=== PATIENT | female | born 1930 | race Caucasian/White ===

== ENCOUNTER → 2016-08-20 | Outpatient (CLI) | payer OTHER, MEDICARE ==
[2016-08-20 09:50] LABS: BLOOD UREA NITROGEN 11 mg/dl (7-18); BUN/CREATININE RATIO 11.5 (10-20); CALCIUM 8.7 mg/dl (8.5-10.1); CARBON DIOXIDE 29 mmol/L (21-32); CHLORIDE 102 mmol/L (98-107); CREATININE 0.93 mg/dl (0.60-1.20); GLUCOSE 94 mg/dl (70-99); POTASSIUM 4.2 mmol/L (3.5-5.1); SODIUM 138 mmol/L (136-145)
[2016-08-20 09:53] LABS: CHOLESTEROL 250 mg/dl (0-200); CHOLESTEROL/HDL RATIO 4.4; HDL CHOLESTEROL 57 mg/dl; LDL CHOLESTEROL CALCULATED 162 mg/dl; TRIGLYCERIDES 153 mg/dl (0-150); VERY LOW DENSITY LIPOPROT CALC 31 mg/dl
== END | disposition home or self-care (01) ==
LOC: C.LABFOXMH 09:06
PROVIDERS: ATTEND Internal Medicine
DX: I10 Essential (primary) hypertension (principal)

== ENCOUNTER → 2017-02-24 | Outpatient (CLI) | payer OTHER, MEDICARE ==
[2017-02-24 09:07] LABS: ALT/SGPT 20 U/L (12-78); AST/SGOT 17 U/L (15-37); BLOOD UREA NITROGEN 14 mg/dl (7-18); BUN/CREATININE RATIO 12.9 (10-20); CALCIUM 9.4 mg/dl (8.5-10.1); CARBON DIOXIDE 30 mmol/L (21-32); CHLORIDE 103 mmol/L (98-107); CHOLESTEROL 263 mg/dl (0-200); CHOLESTEROL/HDL RATIO 4.2; GLUCOSE 91 mg/dl (70-99); HDL CHOLESTEROL 62 mg/dl; LDL CHOLESTEROL CALCULATED 176 mg/dl; POTASSIUM 4.3 mmol/L (3.5-5.1); SODIUM 137 mmol/L (136-145); TRIGLYCERIDES 125 mg/dl (0-150); VERY LOW DENSITY LIPOPROT CALC 25 mg/dl
[2017-02-24 09:09] LABS: ALKALINE PHOSPHATASE 57 U/L (45-117)
[2017-02-25 11:18] LABS: C-REACTIVE PROT HIGHSEN 4.4 MG/L
== END | disposition home or self-care (01) ==
LOC: C.LABFOXMH 08:44
PROVIDERS: ATTEND Internal Medicine
DX: I10 Essential (primary) hypertension (principal); E78.00 Pure hypercholesterolemia, unspecified

== ENCOUNTER → 2017-08-18 | Outpatient (CLI) | payer OTHER, MEDICARE ==
--- NOTE | 2017-08-18 10:16 | DIAGNOSTIC IMAGING REPORT ---
CT HEAD WITHOUT CONTRAST (CT) CLINICAL HISTORY: LOSS OF TASTE AND SMELL COMPARISON STUDY: No previous studies for comparison. TECHNIQUE: Axial CT of the brain is performed from the vertex to the skull base. IV contrast was not administered for this examination. A dose lowering technique was utilized adhering to the principles of ALARA. CT DOSE: 690.05 mGycm FINDINGS: No intra or extra-axial mass lesions are visualized. There is no CT evidence of acute cortical infarction. There is no evidence of midline shift. There is no acute hemorrhage. No calvarial fractures are visualized. There are patchy white matter hypodensities, most pronounced in the frontal regions. While nonspecific this is likely on a small vessel basis. There is no evidence of pathologic ventricular dilatation. There is no evidence of acute sinusitis IMPRESSION: 1. Nonspecific white matter hypodensities, likely on a small vessel ischemic basis 2. No evidence of sinusitis. 3. No evidence of acute hemorrhage. No evidence of mass effect. Electronically signed by: Bassam Holloway M.D. 08/18/2017 10:15 AM Dictated Date/Time: 08/18/2017 10:14 AM
--- NOTE | 2017-08-18 10:36 | DIAGNOSTIC IMAGING REPORT ---
CHEST 2 VIEWS ROUTINE CLINICAL HISTORY: COUGH dyspnea COMPARISON STUDY: 03/04/2015 FINDINGS: Calcified subcarinal mass is again noted. There is been previously described as a calcified bronchogenic cyst. Diaphragms are smooth. Lungs appear clear. IMPRESSION: Chronic change. No acute process. The above report was generated using voice recognition software. It may contain grammatical, syntax or spelling errors. Electronically signed by: Scott Scanlon M.D. 08/18/2017 10:35 AM Dictated Date/Time: 08/18/2017 10:34 AM
== END | disposition home or self-care (01) ==
LOC: C.CTS 09:32
PROVIDERS: ATTEND Internal Medicine Hospice and Palliative Medicine
DX: R05 Cough (principal); R43.8 Other disturbances of smell and taste

== ENCOUNTER → 2017-08-25 | Outpatient (CLI) | payer OTHER, MEDICARE ==
--- NOTE | 2017-08-25 14:41 | MAMMOGRAPHY REPORT ---
BILATERAL DIGITAL SCREENING MAMMOGRAM TOMOSYNTHESIS WITH CAD: 08/25/2017 CLINICAL HISTORY: Routine screening. Patient has no complaints. TECHNIQUE: Breast tomosynthesis in addition to standard 2D mammography was performed. Current study was also evaluated with a Computer Aided Detection (CAD) system. COMPARISON: Comparison is made to exam dated: 07/14/2012 mammogram - [facility]. BREAST COMPOSITION: There are scattered areas of fibroglandular density in both breasts. FINDINGS: No suspicious masses, calcifications, or areas of architectural distortion are noted in ei ther breast. There has been no significant interval change compared to prior exams. Scattered bilater al benign-appearing calcifications are not significantly changed. Nodular asymmetry in the left joe st at approximately 3:00 is stable compared to the 2013 exam and considered benign given long-term st ability. IMPRESSION: ACR BI-RADS CATEGORY 2: BENIGN There is no mammographic evidence of malignancy. A 1 year screening mammogram is recommended. The pa tient will receive written notification of the results. Approximately 10% of breast cancers are not detected with mammography. A negative mammographic report should not delay biopsy if a clinically suggestive mass is present. Natasha López M.D. /:08/25/2017 13:27:21 Admission Nurse: Adela Shahid, [facility] letter sent: Normal 1/2 BI-RADS Code: ACR BI-RADS Category 2: Benign
== END | disposition home or self-care (01) ==
LOC: C.MAMM 12:59
PROVIDERS: ATTEND Internal Medicine
DX: Z12.31 Encounter for screening mammogram for malignant neoplasm of breast (principal)

== ENCOUNTER → 2017-09-26 | Outpatient (CLI) | payer OTHER, MEDICARE ==
--- NOTE | 2017-09-26 11:50 | DIAGNOSTIC IMAGING REPORT ---
CHEST 2 VIEWS ROUTINE CLINICAL HISTORY: 87 years-old Female presenting with COUGH, R53.83. TECHNIQUE: PA and lateral views of the chest were obtained. COMPARISON: 08/18/2017. FINDINGS: Cardiomediastinal silhouette normal. 6.1 cm peripherally calcified subcarinal mass consistent with known bronchogenic cyst unchanged. Lungs and pleural spaces clear. Osseous structures normal. Upper abdomen normal. IMPRESSION: 1. No acute cardiopulmonary disease. 2. 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 Electronically signed by: Brien Collazo M.D. 09/26/2017 11:49 AM Dictated Date/Time: 09/26/2017 11:47 AM
[2017-09-26 12:11] LABS: HEMATOCRIT 42.4 % (37-47); HEMOGLOBIN 14.7 g/dL (12.0-16.0); MEAN CORPUSCULAR HEMOGLOBIN 31.2 pg (25-34); MEAN CORPUSCULAR HGB CONC 34.7 g/dl (32-36); MEAN PLATELET VOLUME 9.7 fL (7.4-10.4); PLATELET COUNT 237 K/uL (130-400); RED CELL DISTRIBUTION WIDTH CV 15.1 % (11.5-14.5); RED CELL DISTRIBUTION WIDTH SD 50.1 fL (36.4-46.3)
[2017-09-26 12:48] LABS: ALBUMIN 3.5 gm/dl (3.4-5.0); ALT/SGPT 24 U/L (12-78); AST/SGOT 15 U/L (15-37); BLOOD UREA NITROGEN 17 mg/dl (7-18); CALCIUM 8.7 mg/dl (8.5-10.1); CARBON DIOXIDE 24 mmol/L (21-32); CREATININE 1.02 mg/dl (0.60-1.20); GLUCOSE 100 mg/dl (70-99); POTASSIUM 4.1 mmol/L (3.5-5.1); SODIUM 135 mmol/L (136-145)
[2017-09-26 13:05] LABS: ALKALINE PHOSPHATASE 66 U/L (45-117); TOTAL PROTEIN 7.5 gm/dl (6.4-8.2)
== END | disposition home or self-care (01) ==
LOC: C.RAD 10:44
PROVIDERS: ATTEND Internal Medicine
DX: R05 Cough (principal); J98.4 Other disorders of lung; R53.83 Other fatigue

== ENCOUNTER 2018-12-22 05:52 | Inpatient (IN) ==
[2018-12-22] MEDS ORDERED: ASPIRIN CHEW 324 MG PO STA (06:13)
[2018-12-22 06:25] LABS: Basophils # (auto) 0.04 K/uL (0-0.2); Basophils % (auto) 0.4 %; Eosinophils # (auto) 0.12 K/uL (0-0.5); Eosinophils % (auto) 1.2 %; Hematocrit (blood only) 42.7 % (37-47); Hemoglobin 14.5 g/dL (12.0-16.0); Immature Granulocytes # (auto) 0.02 K/uL (0.00-0.02); Immature Granulocytes % (auto) 0.2 %; Lymphocytes # (auto) 2.41 K/uL (1.2-3.4); Lymphocytes % (auto) 25.1 %; Mean Corpuscular Volume 89.1 fL (80-100); Mean Platelet Volume 9.8 fL (7.4-10.4); Monocytes # (auto) 0.91 K/uL (0.11-0.59); Monocytes % (auto) 9.5 %; Neutrophils # (auto) 6.12 K/uL (1.4-6.5); Neutrophils % (auto) 63.6 %; Platelet Count 249 K/uL (130-400); RDW Coefficient of Variation 14.6 % (11.5-14.5); RDW Standard Deviation 47.6 fL (36.4-46.3); Red Blood Count 4.79 M/uL (4.2-5.4); White Blood Count 9.62 K/uL (4.8-10.8)
[2018-12-22] MEDS ORDERED: ASPIRIN 81 MG CHEW PO STA (06:28)
[2018-12-22 06:39] LABS: Albumin Level 3.7 gm/dl (3.4-5.0); BUN Creatinine Ratio 15.5 (10-20); Calcium 9.5 mg/dl (8.5-10.1); Creatinine Clr Calc Pharmacy 35.2 ml/min; Est GFR (African American) 51.5; Est GFR (Non-African American) 44.4
[2018-12-22 06:44] LABS: Albumin Globulin Ratio 0.9 (0.9-2); Bilirubin,Total 0.4 mg/dl (0.2-1); Total Protein 7.7 gm/dl (6.4-8.2); Troponin I 0.034 ng/ml (0-0.045)
--- NOTE | 2018-12-22 06:47 | XRay Report ---
XR chest 1V portable CLINICAL HISTORY: Atypical chest pain COMPARISON STUDY: 09/26/2017 FINDINGS: The heart is normal in size. There is no failure. There is no focal pulmonary consolidation . There are no pleural effusions. There is a stable eggshell calcified subcarinal mass measuring 6.4 cm IMPRESSION: Stable calcified 6.4 cm subcarinal mass, possibly representing a rim calcified bronchogen ic cyst Electronically signed by: Bassam Holloway M.D. 12/22/2018 6:46 AM
--- NOTE | 2018-12-22 06:53 | Emergency Department Note ---
Entered by Jane Larry acting as a scribe for Kuldip Santa MD History of Present Illness General Chief complaint: Chest Pain Stated complaint: SHOULDER/CHEST PAIN Time Seen by Provider: 12/22/18 06:28 Source: patient History of Present Illness Onset (ago): hour(s) (6.5) Location: chest (left-sided) Radiation: extremity (left upper; and left shoulder) Pain Consistency: + other (episode) Maximum Pain Intensity: 4 Associated symptoms: + nausea/vomiting and + other (negative numbness; negative pain or swelling in legs); no cough, no fever/chills, no headaches, no shortness of breath and no weakness Treatments prior to arrival: other (baby aspirin) The patient is a 88 year old female who presents to the Emergency Room with complaints of an episode of left-sided chest pain that began at midnight, about 6.5 hours prior to arrival. She states that her pain radiates into her left arm and left shoulder. The patient states that this pain woke her up from sleep, and states that she took several baby aspirin at this time. She states that after taking this baby aspirin she became nauseous and vomited. The patient denies headache, shortness of breath, fevers, cough, numbness, weakness, and pain or swelling in her legs. She states that she was able to take more baby aspirin at 0400 and did not vomit afterwards. The patient denies any trauma to her left arm. The patient denies a personal or family history of heart problems, but states that she has a history of hypertension. She states that she heard some stressful news yesterday about her sons. Home Medications Home Medications Medication Instructions Recorded Confirmed Type aspirin 81 mg PO UD PRN 12/22/18 12/22/18 History irbesartan 150 mg PO DAILY 12/22/18 12/22/18 History pantoprazole 40 mg PO DAILY 12/22/18 12/22/18 History Allergies Allergy/AdvReac Type Severity Reaction Status Date / Time amoxicillin Allergy Intermediate Hives Verified 12/22/18 12:13 Iodinated Contrast- Oral and Allergy Swelling Verified 12/22/18 06:19 IV Dye of Lip/Tongue/Throat strawberry Allergy Hives Verified 12/22/18 06:19 tomato Allergy Hives Verified 12/22/18 06:19 Past Med/Surg History Surgical History S/P tonsillectomy and adenoidectomy Family History Other No pertinent family history in first degree relatives Social History Preferred Language: Estonian Communication Ability: Effective Academic Support Director Required: No Beliefs That Will Affect Care: None Current Living Situation: Boarding Home Other Information That Helps Us Care for You: No Feels Safe at Home: Yes Safety Concerns: Feels Safe At This Time Smoking Status: Never smoker Do You Dip or Chew Tobacco: No ; Hx Alcohol Use: No Hx Substance Use: No Review of Systems See HPI for pertinent positives & negatives. and A total of 10 systems reviewed and were otherwise negative Physical Exam Vital Signs Vital Signs - 24 hr 12/22/18 06:08 12/22/18 06:23 12/22/18 06:56 Temperature 36.6 C Temperature Source Oral Sepsis Recent Fever Within 48 Hours No Sepsis Action Taken by Nursing No Action Required Pulse Rate 74 Pulse Rate [Apical] 69 Pulse Rhythm [Apical] Regular Respiratory Rate 18 18 Respiratory Effort / Characteristics Non-Labored Spontaneous Respiratory Depth Normal Normal Blood Pressure 187/91 H Blood Pressure [Left Arm] 182/100 H Blood Pressure Mean 123 Blood Pressure Mean [Left Arm] 127 Pulse Oximetry 98 97 98 Oxygen Delivery Method Room Air Room Air Room Air 12/22/18 08:47 Temperature Temperature Source Sepsis Recent Fever Within 48 Hours Sepsis Action Taken by Nursing Pulse Rate Pulse Rate [Apical] 71 Pulse Rhythm [Apical] Respiratory Rate 18 Respiratory Effort / Characteristics Respiratory Depth Blood Pressure Blood Pressure [Left Arm] 153/85 H Blood Pressure Mean Blood Pressure Mean [Left Arm] 107 Pulse Oximetry 95 Oxygen Delivery Method Room Air General: Non-ill appearing older female in no acute distress. HEENT: Normal cephalic atraumatic. Pupils are equal round and reactive to light. Extraocular movements are intact. Oropharynx is pink with moist mucous membranes. No swelling of the mouth lips or tongue. Neck: Supple with a midline trachea. No meningeal signs or stiffness, no JVD or bruits. No Stridor. Chest: Clear to auscultation bilaterally. No wheezes or rhonchi. No increased work of breathing. Heart: regular rate and rhythm. Abdomen: Soft nontender, nondistended without rebound guarding or rigidity. Extremities: Left upper extremity with normal pulses, motor, and sensation. No cyanosis clubbing or edema. No calf tenderness or asymmetry. Spine/Back. Non tender to palpation. No CVA tenderness Skin: Good turgor without rashes. Neurologic exam: Cranial nerves two through 12 are intact. Motor and sensation are intact and symmetrical throughout. Course 0629: Past medical records reviewed. The patient was evaluated in room A11B. A complete history and physical exam was performed. 0657: Upon reevaluation, the patient is feeling better. She states that she has some mild left arm pain but states that this is improving. The patient denies chest pain currently. 0735: [facility] for further evaluation. Consultations Consultation #1: [facility] for further evaluation. Time: 07:35 Administered Medications Heparin Sodium (Porcine) (Heparin Sodium (Porcine)) 5,000 units SQ Q12 DAVID Stop: 01/21/19 09:55 Last Admin: 12/22/18 12:04 Dose: Not Given Documented by: [id number] Metoprolol Tartrate (Lopressor) 12.5 mg PO BID DAVID Stop: 01/21/19 10:44 Last Admin: 12/22/18 12:03 Dose: 12.5 mg Documented by: [id number] Pantoprazole Sodium (Protonix) 40 mg PO DAILY DAVID Stop: 01/21/19 10:14 Last Admin: 12/22/18 12:03 Dose: 40 mg Documented by: [id number] Discontinued Medications Aspirin (Aspirin) 324 mg PO NOW STA Stop: 12/22/18 06:14 Last Admin: 12/22/18 06:50 Dose: Not Given Documented by: [id number] Aspirin (Aspirin Chew) 162 mg PO NOW STA Stop: 12/22/18 06:29 Last Admin: 12/22/18 06:49 Dose: 162 mg Documented by: [id number] Sodium Chloride (Nss 1000ml) 1,000 mls @ 75 mls/hr IV .[id number] DAVID Stop: 01/21/19 09:55 Last Admin: 12/22/18 10:59 Dose: 75 mls/hr Documented by: [id number] Medical Decision Making Differential Diagnosis Differential diagnoses include acute coronary syndrome, arrhythmia, musculoskeletal, DVT, arterial insufficiency, anxiety, and others were considered. Medical Records Attestation: I reviewed the patient's medical records. Home Medications Current Medication List: was personally reviewed by me Laboratory Data Attestation: I reviewed the patient's lab results. Result diagrams: 12/22/18 06:03 12/22/18 06:03 Lab Results 12/22/18 12/22/18 12/22/18 Range/Units 06:03 06:03 06:03 WBC 9.62 (4.8-10.8) K/uL RBC 4.79 (4.2-5.4) M/uL Hgb 14.5 (12.0-16.0) g/dL Hct 42.7 (37-47) % MCV 89.1 (80-100) fL MCH 30.3 (25-34) pg MCHC 34.0 (32-36) g/dL RDW Std Deviation 47.6 H (36.4-46.3) fL RDW Coeff of Miriam 14.6 H (11.5-14.5) % Plt Count 249 (130-400) K/uL MPV 9.8 (7.4-10.4) fL Immature Gran % (Auto) 0.2 % Neut % (Auto) 63.6 % Lymph % (Auto) 25.1 % [place] % (Auto) 9.5 % Eos % (Auto) 1.2 % Baso % (Auto) 0.4 % Immature Gran # (Auto) 0.02 (0.00-0.02) K/uL Neut # (Auto) 6.12 (1.4-6.5) K/uL Lymph # (Auto) 2.41 (1.2-3.4) K/uL [place] # (Auto) 0.91 H (0.11-0.59) K/uL Eos # (Auto) 0.12 (0-0.5) K/uL Baso # (Auto) 0.04 (0-0.2) K/uL PT 9.8 (9.0-12.0) Seconds INR 1.0 (0.9-1.1) APTT 24.0 (21.0-31.0) Seconds PTT Ratio 0.9 Sodium 133 L (136-145) mmol/L Potassium 4.0 (3.5-5.1) mmol/L Chloride 100 (98-107) mmol/L Carbon Dioxide 25 (21-32) mmol/L Anion Gap 8.0 (3-11) BUN 17 (7-18) mg/dl Creatinine 1.12 (0.6-1.2) mg/dl Est Cr Clr Drug Dosing 35.2 ml/min Est GFR ( Amer) 51.5 Est GFR (Non-Af Amer) 44.4 BUN/Creatinine Ratio 15.5 (10-20) Glucose 125 H (70-99) mg/dl Calcium 9.5 (8.5-10.1) mg/dl Total Bilirubin 0.4 (0.2-1) mg/dl AST 16 (15-37) U/L ALT 23 (12-78) U/L Alkaline Phosphatase 78 (45-117) U/L Troponin I 0.034 (0-0.045) ng/ml Total Protein 7.7 (6.4-8.2) gm/dl Albumin 3.7 (3.4-5.0) gm/dl Globulin 4.0 (2.5-4.0) gm/dl Albumin/Globulin Ratio 0.9 (0.9-2) Lipase 217 (73-393) U/L Imaging Data Radiologist's Impression: Radiology results as stated below per my review and the radiologist's interpretation: XR chest 1V portable CLINICAL HISTORY: Atypical chest pain COMPARISON STUDY: 09/26/2017 FINDINGS: The heart is normal in size. There is no failure. There is no focal pulmonary consolidation. There are no pleural effusions. There is a stable eggshell calcified subcarinal mass measuring 6.4 cm IMPRESSION: Stable calcified 6.4 cm subcarinal mass, possibly representing a rim calcified bronchogenic cyst Electronically signed by: Bassam Holloway M.D. 12/22/2018 6:46 AM ECG Data Attestation: I personally reviewed and interpreted this ECG as follows: Indication: chest pain Rate (beats per minute): 73 Rhythm: normal sinus Findings: no acute ischemic change and no ectopy Comparison ECG Date: no prior available Additional Comments: Repeat ECG showed a normal sinus rhythm with a rate of 70. No acute ischemic changes or ectopy. No change from the initial ECG. Blood Pressure Blood Pressure Findings: Elevated blood pressure Blood Pressure Disposition: further management by hospitalist ADRY Vazquez This patient comes in as described above. She was placed in room A10. She is here for treatment evaluation of episode of left arm and chest pain which started around midnight. She is feeling significant better. she has no chest pain with residual minimal arm pain. She did take aspirin prior to arrival last evening and was given additional aspirin here. she does have a history of hypertension and hypercholesteremia. IV access was established EKG was obtained which does not show acute ischemic changes or ectopy. Chest x-ray shows a stable subcarinal mass but no CHF pneumonia or pneumothorax. She has no significant electrolyte or metabolic abnormalities. She appears to be doing well at this point. I am however concerned about her history. She does have a heart score of 5. I do think that she would benefit from admission/observation for further treatment and evaluation of her chest pain. I have consulted the [facility] physician for this. Impression & Plan Left-sided chest pain, Unstable angina, Left arm pain, Hypertension Discharge Plan Visit Data *Final* Discharge Date/Time: 12/22/18 09:29 Chief Complaint: Chest Pain Stated Complaint: SHOULDER/CHEST PAIN Other Complaint: Shoulder Pain ED Provider: Kuldip Santa Discharge Problem: Left-sided chest pain, Unstable angina, Left arm pain, Hypertension Patient Disposition: Admitted As Inpatient Discharge Instructions Interventions: ED Discharge Assessment Last Done: 12/22/18 09:29 The scribe's documentation has been prepared under my direction and personally reviewed by me in its entirety. I confirm that the note above accurately reflects all work, treatment, procedures, and medical decision making performed by me.
[2018-12-22] MEDS ORDERED: SODIUM CHLORIDE 0.9% 1000ML 1,000 ML IV SCH (09:56)
[2018-12-22] MEDS ORDERED: MoRPHine SULFATE 2 MG/ML CARP IV PRN (09:56)
[2018-12-22] MEDS ORDERED: HydrALAZINE HCL 20 MG/ML VIAL IV PRN (09:56)
[2018-12-22] MEDS ORDERED: HEPARIN SOD 5,000 UNIT/0.5 ML VIAL SQ SCH (09:56)
[2018-12-22] MEDS ORDERED: LORazepam 0.5 MG TAB PO PRN (09:56)
[2018-12-22] MEDS ORDERED: MAGNESIUM HYDROXIDE SUSP 30 ML UDC PO PRN (09:56)
[2018-12-22] MEDS ORDERED: ALUMINUM/MAGNESIUM SUSP 30 ML UDC PO PRN (09:56)
[2018-12-22] MEDS ORDERED: ACETAMINOPHEN 325 MG TAB PO PRN (09:56)
[2018-12-22] MEDS ORDERED: NITROGLYCERIN SL 0.4 MG/TAB TAB SL PRN (09:56)
[2018-12-22] MEDS ORDERED: ONDANSETRON INJ 2 MG/ML 2 ML VIAL IV PRN (09:56)
[2018-12-22 10:29] LABS: Partial Thromboplastin Ratio 0.9; Prothrombin Time 9.8 Seconds (9.0-12.0)
[2018-12-22] MEDS ORDERED: METOPROLOL TARTRATE 25 MG TAB PO SCH (10:45)
[2018-12-22 11:39] LABS: Troponin I 0.413 ng/ml (0-0.045)
[2018-12-22] MEDS: PANTOprazole 40 MG TAB PO SCH (12:03)
--- NOTE | 2018-12-22 13:08 | CT Scan Report ---
CT SCAN OF THE CHEST WITHOUT IV CONTRAST CLINICAL HISTORY: Calcified subcarinal lesion. COMPARISON STUDY: Chest CT dated 03/06/2015. Chest x-ray dated 12/22/2018. TECHNIQUE: CT scan of the thorax was performed from the thoracic inlet to the upper abdomen. Images are reviewed in the axial, sagittal, and coronal planes. IV contrast was not administered for this ex amination. A dose lowering technique was utilized adhering to the principles of ALARA. CT DOSE: 265.20 mGy.cm FINDINGS: Thyroid: Imaged portions of the thyroid gland are normal in size and attenuation. Thoracic aorta: There is atherosclerotic calcification of the thoracic aorta, which is normal in kaity declan and demonstrates bovine variant arch anatomy. Heart: The heart is normal in size and there is a small pericardial effusion. The coronary arteries a nd mitral annulus are densely calcified. The pulmonary trunk is normal in caliber. Lungs and pleural spaces: There is no airspace consolidation or pleural effusion. Scattered calcified granulomas are observed. Scarring/atelectasis is seen at the lung bases. The trachea and central air ways are clear. Mediastinum: There is a 6.1 x 6.5 x 5.8 cm peripherally calcified cystic lesion present in the subcar inal space, best seen on image #140. This contains internal calcific debris. Suzi: Not well assessed without IV contrast. Axillae: There is no axillary lymphadenopathy. Upper abdomen: There is a small hiatal hernia. Diverticulosis is noted in the partially imaged left c olon. Skeletal structures: The skeletal structures are osteopenic. Degenerative change is noted throughout the thoracic spine. No lytic or blastic bony lesions are seen. IMPRESSION: 1. There is unchanged appearance of a 6.5 cm peripherally calcified cystic subcarinal lesion when com pared to the 03/06/2015 examination. 2. This is pathologically indeterminant, and likely represents a calcified bronchogenic or duplicatio n cyst. Aneurysm is considered much less likely. 3. The lungs are clear. 4. Additional findings as above. Electronically signed by: Teddy Terry M.D. 12/22/2018 1:07 PM
--- NOTE | 2018-12-22 13:37 | Cardiology Consultation ---
Date of Consultation December 22, 2018 Assessment & Plan (1) Left-sided chest pain: She describes left chest, shoulder and left arm discomfort which lasted for a number of hours and occurred at rest. Although her electrocardiogram is unchanged and her echocardiogram does not show abnormalities the symptoms are suspicious for coronary artery disease in view of an abnormal troponin. Since the symptoms occurred at rest and she has not had exercise-induced symptoms if this is a symptom of ischemia it is consistent with unstable angina. I am reluctant to perform stress testing and have recommended a cardiac catheterization. She is agreeable and we will arrange that today. Although her chart lists an allergy to iodinated contrast she has never received IV dye and has not reacted to it. She does have an allergic reaction to iodine- containing foods in the distant past which may not cross-react. (2) Hypertension: She has a history of hypertension and presents with an elevated blood pressure. Some of that may be anxiety related, or missing her morning medications. Over the long run we should treat her hypertension, initially by placing her back on her medications. History of Present Illness Reason for Consultation: Left arm and chest discomfort, elevated troponin Attending Physician: Bessy Garsia MD History of Present Illness This is a very pleasant 88-year-old woman who has been in quite good health with the exception of hypertension. She has never had any heart disease identified, additionally she has not had symptoms that sound anginal up until midnight the night before admission. She is quite active, she does exercises regularly and is never had difficulty with chest discomfort, shortness of breath or left arm discomfort. She awoke at midnight with left arm discomfort, she also had pain in her left chest and left shoulder and she had never had feeling like this before. Initially she thought it was from the position she was in, however when it continued she took 2 baby aspirin and did have diaphoresis and nausea with it. She came into the emergency room where her electrocardiogram was noted to be normal, her arm discomfort resolved shortly after arrival and her initial troponin was not significantly elevated. She was therefore admitted. Her electrocardiogram and her echocardiogram are normal. She has not had any further chest or arm discomfort and she feels well. She reiterates that she has never had these symptoms before but remains concerned about them. She does report an allergy to iodine, she is not sure how she initially had it but it was a long time ago when she was in [place], ever since then she has avoided eating shellfish or fish. Her chart indicates that she has an allergy to iodinated contrast dye but she is confident she is never received it, it was suggested that she have an IVP at some point in the past and that was not done due to this possible allergy. Allergies Allergy/AdvReac Type Severity Reaction Status Date / Time amoxicillin Allergy Intermediate Hives Verified 12/22/18 12:13 Iodinated Contrast- Oral and Allergy Swelling Verified 12/22/18 06:19 IV Dye of Lip/Tongue/Throat strawberry Allergy Hives Verified 12/22/18 06:19 tomato Allergy Hives Verified 12/22/18 06:19 Home Medications Home Medications Medication Instructions Recorded Confirmed Type aspirin 81 mg PO UD PRN 12/22/18 12/22/18 History irbesartan 150 mg PO DAILY 12/22/18 12/22/18 History pantoprazole 40 mg PO DAILY 12/22/18 12/22/18 History Patient History Medical History Hypertension (Chronic) Family History Other No pertinent family history in first degree relatives Social History Preferred Language: American Communication Ability: Effective Halal Butcher Required: No Beliefs That Will Affect Care: None Current Living Situation: Boarding Home Other Information That Helps Us Care for You: No Feels Safe at Home: Yes Safety Concerns: Feels Safe At This Time Smoking Status: Never smoker Do You Dip or Chew Tobacco: No ; Hx Alcohol Use: No Hx Substance Use: No Review of Systems Review of Systems: All systems reviewed & are unremarkable except as noted in HPI & below Physical Exam Physical Exam: Constitutional: Alert, cooperative and in no distress. HEENT: Unremarkable Neck: No jugular venous distention, carotid pulses are normal and equal bilaterally without bruits. Pulmonary: Clear to auscultation bilaterally. Cardiac: Regular rhythm with no murmur, gallop or rub. Abdomen: Soft, nontender with normal bowel sounds. Extremities: No edema. Distal pulses intact. Neurologic: No focal findings. Gait is steady. Skin: No rash, ecchymoses or petechiae. Results & Data Vital Signs (Past 12 Hours) Vital Signs Temp Pulse Pulse Pulse Resp BP BP 12/22/18 11:36 36.4 C L 74 16 163/83 H 12/22/18 10:10 36.4 C L 65 18 166/84 H 12/22/18 09:28 73 18 152/85 H 12/22/18 08:47 71 18 153/85 H 12/22/18 06:56 69 18 182/100 H 12/22/18 06:23 12/22/18 06:08 36.6 C 74 18 187/91 H Pulse Ox 12/22/18 11:36 94 12/22/18 10:10 96 12/22/18 09:28 95 12/22/18 08:47 95 12/22/18 06:56 98 12/22/18 06:23 97 12/22/18 06:08 98 Laboratory Results Abnormal lab results 12/22/18 12/22/18 12/22/18 Range/Units 06:03 06:03 10:55 RDW Std Deviation 47.6 H (36.4-46.3) fL RDW Coeff of Miriam 14.6 H (11.5-14.5) % [place] # (Auto) 0.91 H (0.11-0.59) K/uL Sodium 133 L (136-145) mmol/L Glucose 125 H (70-99) mg/dl Troponin I 0.413 H* (0-0.045) ng/ml Cholesterol 230 H (0-200) mg/dl Diagnostic Findings Her initial electrocardiogram at 6 AM on December 22, 2018 is normal. A repeat electrocardiogram at 7:20 AM the same day is also normal. An echocardiogram done today is notable for moderate left ventricular hypertrophy but a normal left ventricular size and function with no wall motion abnormalities. Telemetry monitoring demonstrates sinus rhythm with no significant ectopy. PG Care Time/CCT Total # of Minutes Spent Total Time Spent with Patient: Total time spent is greater than 50% in coordination of care (as documented) at patient's floor/unit and/or counseling patient:
[2018-12-22] MEDS ORDERED: MIDAZOLAM HCL 1 MG/ML 2ML VIAL ONE (13:43)
[2018-12-22] MEDS ORDERED: HEPARIN (PORCINE) 1000 UNIT/ML 10 ML (CATH LAB USE ONLY) ONE (13:43)
[2018-12-22] MEDS ORDERED: NiCARDipine HCL INJ 2.5 MG/ML 10 ML AMP ONE (13:43)
[2018-12-22] MEDS ORDERED: fentaNYL citrate 100 MCG/2 ML VIAL ONE (13:43)
[2018-12-22] MEDS ORDERED: NITROGLYCERIN/D5W 100MCG/ML 20ML SYR ONE (13:43)
[2018-12-22] MEDS ORDERED: methylPREDNISolone 125 MG/2 ML VIAL ONE (13:48)
[2018-12-22] MEDS ORDERED: DiphenhydrAMINE HCL 50 MG/ML VIAL ONE (13:48)
--- NOTE | 2018-12-22 13:56 | History & Physical Report ---
Date of Service December 22, 2018 Assessment & Plan (1) NSTEMI (non-ST elevated myocardial infarction): - Presented with chest pain concerning for unstable angina; also had multiple stressful events over last 24 hours. - EKG was negative for acute changes. - Trop trending up, most recent level was 0.4. - Echocardiogram with preserved EF, no wall motion abnormalities. - Cardiology consulted. S/p cardiac cath this afternoon --showed severe single vessel coronary artery disease-50 to 60% mid LAD, 90% acute apical small LAD not amenable to stenting; she had normal intracardiac filling pressure -Will attempt medical management for CAD noted during procedure. - Will start heparin drip; also give Plavix loading dose followed by 75 mg daily. - Has been statin intolerant in the past but will trial Crestor 20 mg daily and recommend adding co-Q10 at home; added Metoprolol 25 mg BID, continue Aspirin 81 mg daily as prescribed. -Cardiology recommends angioplasty to the LAD lesion if has persistent anginal symptoms (2) Elevated troponin: - Trop increased in setting of NSTEMI, see above. (3) Hypertension: - Will hold home Irbesartan (non-formulary); start Losartan 50 mg daily as inpt. - Added Metoprolol 25 mg BID - titrate dose as needed. - BP has been elevated -- related to stress vs. other. If BP remains elevated, will need additional control. (4) HLD (hyperlipidemia): - Elevated cholesterol noted on lipid panel. - Pt. has been statin intolerant in the past due to myalgias. -Start Crestor 20 mg daily and recommend adding co-every 10 at home -will need LFTs and repeat lipid panel in 4 to 6 weeks (5) GERD (gastroesophageal reflux disease): - PPI daily. (6) Schatzki's ring: - Follows with Dr. Davis; s/p EGD in October 2018. (7) Stage III chronic kidney disease: - Renally dose all meds. 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 - Consulted Dr. Noyola from pulmonary, appreciate input. -Check chest CT (9) DVT prophylaxis: - Heparin drip. Dispo: Med/surg with tele for cardiac work up. History of Present Illness Chief Complaint: Chest Pain Primary Care Provider: [facility] Mrs. Mckenna is an 88 year old with past medical history of Schatzki's ring, HTN, GERD who presented with chest pain. She states she developed left arm pain at midnight last evening. Pt. took two Aspirin tablets but had episode of vomi ting after ingestion. She fell back asleep; pt. woke up around 4 am with left arm, left chest and left shoulder pain. She took two aspirin tablets and called 911. Had chills and diaphoresis, denies SOB, headache or visual changes, LE edema, abdominal pain, dysuria or hematuria. 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 Pt. did have a stressful day prior to admission -- she learned that her middle son lost his job, her eldest son was admitted to the hospital in [place] for bacterial meningitis and her ex 's dog . ER course: BP was elevated with SBP >180 (likely related to lack of ARB at home). EKG showed no acute ST-T wave changes. Trop was 0.034, will trend q6hr. Allergies Allergy/AdvReac Type Severity Reaction Status Date / Time amoxicillin Allergy Intermediate Hives Verified 12/22/18 12:13 Iodinated Contrast- Oral and Allergy Swelling Verified 12/22/18 06:19 IV Dye of Lip/Tongue/Throat strawberry Allergy Hives Verified 12/22/18 06:19 tomato Allergy Hives Verified 12/22/18 06:19 Home Medications Home Medications Medication Instructions Recorded Confirmed Type aspirin 81 mg PO UD PRN 12/22/18 12/22/18 History irbesartan 150 mg PO DAILY 12/22/18 12/22/18 History pantoprazole 40 mg PO DAILY 12/22/18 12/22/18 History Past Med/Surg History Medical History DVT (deep venous thrombosis) Following of first son, >65 years ago. 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 Other Information That Helps Us Care for You: No Feels Safe at Home: Yes Safety Concerns: Feels Safe At This Time Smoking Status: Former smoker Tobacco Type: cigarettes ; Age Quit Using Tobacco: 27 ; Do You Dip or Chew Tobacco: No ; Hx Alcohol Use: No Hx Substance Use: No Review of Systems Review of Systems: All systems reviewed & are unremarkable except as noted in HPI & below Constitutional: no fever, no chills, no fatigue, no weakness and no anorexia Respiratory: no cough, no dyspnea, no dyspnea on exertion and no wheezing Cardiovascular: + chest pain, + chest pain at rest, + chest pain with activity and + radiating jaw, neck or arm pain; no palpitations, no lightheadedness, no syncope and no edema Gastrointestinal: + nausea and + vomiting; no abdominal pain, no constipation, no diarrhea/loose stools, no blood in stools and no melena Genitourinary: no dysuria, no difficulty urinating and no hematuria Musculoskeletal: no back pain, no joint pain, no myalgia and no body aches Integumentary: no non-healing lesions Neurologic: no dizziness, no headache(s) and no confusion Allergy / Immunological: no rash Physical Exam Physical Exam: General: Resting comfortably HEENT: NC/AT; PERRLA with EOMI; [place] conjunctiva, MMM. No erythema of posterior pharynx Neck: Supple and nontender Cardiac: RRR w/o murmurs, gallops or rubs Lungs: CTA bilaterally; No rhonchi, wheezing, or rales Abdomen: Bowel normoactive X 4; Nontender to palpation Extremities: Warm. No edema present Neuro: No focal weakness Skin: No rash Results & Data Vital Signs (Past 12 Hours) Vital Signs Temp Pulse Pulse Pulse Resp BP BP 12/22/18 11:36 36.4 C L 74 16 163/83 H 12/22/18 10:10 36.4 C L 65 18 166/84 H 12/22/18 09:28 73 18 152/85 H 12/22/18 08:47 71 18 153/85 H 12/22/18 06:56 69 18 182/100 H 12/22/18 06:23 12/22/18 06:08 36.6 C 74 18 187/91 H Pulse Ox 12/22/18 11:36 94 12/22/18 10:10 96 12/22/18 09:28 95 12/22/18 08:47 95 12/22/18 06:56 98 12/22/18 06:23 97 12/22/18 06:08 98 Laboratory Results 12/22/18 12/22/18 12/22/18 Range/Units 10:55 06:03 06:03 WBC (4.8-10.8) K/uL RBC (4.2-5.4) M/uL Hgb (12.0-16.0) g/dL Hct (37-47) % MCV (80-100) fL MCH (25-34) pg MCHC (32-36) g/dL RDW Std Deviation (36.4-46.3) fL RDW Coeff of Miriam (11.5-14.5) % Plt Count (130-400) K/uL MPV (7.4-10.4) fL Immature Gran % (Auto) % Neut % (Auto) % Lymph % (Auto) % Hooker % (Auto) % Eos % (Auto) % Baso % (Auto) % Immature Gran # (Auto) (0.00-0.02) K/uL Neut # (Auto) (1.4-6.5) K/uL Lymph # (Auto) (1.2-3.4) K/uL Hooker # (Auto) (0.11-0.59) K/uL Eos # (Auto) (0-0.5) K/uL Baso # (Auto) (0-0.2) K/uL PT 9.8 (9.0-12.0) Seconds INR 1.0 (0.9-1.1) APTT 24.0 (21.0-31.0) Seconds PTT Ratio 0.9 Sodium 133 L (136-145) mmol/L Potassium 4.0 (3.5-5.1) mmol/L Chloride 100 (98-107) mmol/L Carbon Dioxide 25 (21-32) mmol/L Anion Gap 8.0 (3-11) BUN 17 (7-18) mg/dl Creatinine 1.12 (0.6-1.2) mg/dl Est Cr Clr Drug Dosing 35.2 ml/min Est GFR ( Amer) 51.5 Est GFR (Non-Af Amer) 44.4 BUN/Creatinine Ratio 15.5 (10-20) Glucose 125 H (70-99) mg/dl Calcium 9.5 (8.5-10.1) mg/dl Total Bilirubin 0.4 (0.2-1) mg/dl AST 16 (15-37) U/L ALT 23 (12-78) U/L Alkaline Phosphatase 78 (45-117) U/L Troponin I 0.413 H* 0.034 (0-0.045) ng/ml Total Protein 7.7 (6.4-8.2) gm/dl Albumin 3.7 (3.4-5.0) gm/dl Globulin 4.0 (2.5-4.0) gm/dl Albumin/Globulin Ratio 0.9 (0.9-2) Triglycerides 103 (0-150) mg/dl Cholesterol 230 H (0-200) mg/dl LDL Cholesterol, Calc 149 mg/dl VLDL Cholesterol, Calc 21 mg/dl HDL Cholesterol 60 mg/dl Cholesterol/HDL Ratio 4 Lipase 217 (73-393) U/L 12/22/18 Range/Units 06:03 WBC 9.62 (4.8-10.8) K/uL RBC 4.79 (4.2-5.4) M/uL Hgb 14.5 (12.0-16.0) g/dL Hct 42.7 (37-47) % MCV 89.1 (80-100) fL MCH 30.3 (25-34) pg MCHC 34.0 (32-36) g/dL RDW Std Deviation 47.6 H (36.4-46.3) fL RDW Coeff of Miriam 14.6 H (11.5-14.5) % Plt Count 249 (130-400) K/uL MPV 9.8 (7.4-10.4) fL Immature Gran % (Auto) 0.2 % Neut % (Auto) 63.6 % Lymph % (Auto) 25.1 % Hooker % (Auto) 9.5 % Eos % (Auto) 1.2 % Baso % (Auto) 0.4 % Immature Gran # (Auto) 0.02 (0.00-0.02) K/uL Neut # (Auto) 6.12 (1.4-6.5) K/uL Lymph # (Auto) 2.41 (1.2-3.4) K/uL Hooker # (Auto) 0.91 H (0.11-0.59) K/uL Eos # (Auto) 0.12 (0-0.5) K/uL Baso # (Auto) 0.04 (0-0.2) K/uL PT (9.0-12.0) Seconds INR (0.9-1.1) APTT (21.0-31.0) Seconds PTT Ratio Sodium (136-145) mmol/L Potassium (3.5-5.1) mmol/L Chloride (98-107) mmol/L Carbon Dioxide (21-32) mmol/L Anion Gap (3-11) BUN (7-18) mg/dl Creatinine (0.6-1.2) mg/dl Est Cr Clr Drug Dosing ml/min Est GFR ( Amer) Est GFR (Non-Af Amer) BUN/Creatinine Ratio (10-20) Glucose (70-99) mg/dl Calcium (8.5-10.1) mg/dl Total Bilirubin (0.2-1) mg/dl AST (15-37) U/L ALT (12-78) U/L Alkaline Phosphatase (45-117) U/L Troponin I (0-0.045) ng/ml Total Protein (6.4-8.2) gm/dl Albumin (3.4-5.0) gm/dl Globulin (2.5-4.0) gm/dl Albumin/Globulin Ratio (0.9-2) Triglycerides (0-150) mg/dl Cholesterol (0-200) mg/dl LDL Cholesterol, Calc mg/dl VLDL Cholesterol, Calc mg/dl HDL Cholesterol mg/dl Cholesterol/HDL Ratio Lipase (73-393) U/L Code Status & VTE Plan Code Status DNR/DNI Supervising Physician Co-Signing Physician Notes PA Supervision Note: I personally saw and examined the patient. I verified all youssef points and agree with RAMON Hitchcock with the following exceptions and/or additions: Patient presented with typical sounding left-sided chest pain radiating down the left arm which was severe in nature, and was associated with diaphoresis and nausea with vomiting. It came on at rest and she has had multiple significantly stressful events last 24 hours in her personal life. Initial troponin was negative but repeat troponin was mildly positive. She was chest pain-free at the time I saw her. ECGs were reviewed and were within normal limits Other laboratory values were reviewed Chest x-ray and chest CT reviewed which show a large possible bronchogenic cyst which is not likely causing any of her symptoms Vitals reviewed Insert physical exam Gen: AAOx3, NAD HEENT: Anicteric sclerae, EOMI CV: RRR no mgr nl S1S2 Pulm: CTAB no wcr Abd: +BS soft NT ND no masses or hernias Ext: No edema, 2+ DP pulses Skin: No rashes, warm/dry Neuro: Full strength throughout Pt is an 88 yo female with a h/o HTN, here with unstable angina, with severe CAD at the apical portion of the LAD that son amenable to stenting -Medical management for CAD as above Admit to PCU PG Care Time/CCT Total # of Minutes Spent Total Time Spent with Patient: Total time spent is greater than 50% in coordination of care (as documented) at patient's floor/unit and/or counseling patient: (1) Hypertension Hypertension type: unspecified Qualified Code(s): I10 - Essential (primary) hypertension
[2018-12-22] MEDS ORDERED: HEPARIN SODIUM/DEXTROSE 25,000 UNITS/500 ML BAG IV SCH (15:15)
[2018-12-22] MEDS ORDERED: CLOPIDOGREL BISULFATE 300 MG TAB PO STA (15:15)
--- NOTE | 2018-12-22 15:18 | Pre Anesthesia Assessment ---
Date of Service December 22, 2018 Pre Sedation Assessment Vital Signs Temp Pulse Pulse Pulse Resp BP BP 12/22/18 11:36 36.4 C L 74 16 163/83 H 12/22/18 10:10 36.4 C L 65 18 166/84 H 12/22/18 09:28 73 18 152/85 H 12/22/18 08:47 71 18 153/85 H 12/22/18 06:56 69 18 182/100 H 12/22/18 06:23 12/22/18 06:08 36.6 C 74 18 187/91 H Pulse Ox 12/22/18 11:36 94 12/22/18 10:10 96 12/22/18 09:28 95 12/22/18 08:47 95 12/22/18 06:56 98 12/22/18 06:23 97 12/22/18 06:08 98 Cardiovascular RRR, no murmur, no edema Respiratory normal respiratory effort, lungs clear to auscultation Pre-Sedation Airway Assessment Smoking Status: Former smoker Hx Sleep Apnea: No Hx Difficult Intubation: No Short, Thick Neck: No Thyromental Distance: > or= 3.5 Finger Breadths Mallampati Class: III Procedure Planning Contraindications for Sedation: none Current Medications Reviewed: Yes Notes The planned sedation has been discussed with the patient. Informed Consent was obtained. I have identified the patient, determined the appropriateness of sedation and have assessed the patient immediately prior to the procedure. All medicine(s) and interventions are by my order.
--- NOTE | 2018-12-22 15:21 | Post Anesthesia Assessment ---
Date of Service December 22, 2018 Post Sedation Assessment Vital Signs Temp Pulse Pulse Pulse Resp BP BP 12/22/18 11:36 36.4 C L 74 16 163/83 H 12/22/18 10:10 36.4 C L 65 18 166/84 H 12/22/18 09:28 73 18 152/85 H 12/22/18 08:47 71 18 153/85 H 12/22/18 06:56 69 18 182/100 H 12/22/18 06:23 12/22/18 06:08 36.6 C 74 18 187/91 H Pulse Ox 12/22/18 11:36 94 12/22/18 10:10 96 12/22/18 09:28 95 12/22/18 08:47 95 12/22/18 06:56 98 12/22/18 06:23 97 12/22/18 06:08 98 Recovery Score Activity: Moves 4 extremities Respiration: Deep Breath/Cough Circulation: +/-20% PreAnes Value Consciousness: Fully Awake Oxygen Saturation: O2 needed for >90% Discharge Sedation Level of Care: Fast Track Phase II Post Sedation Plan On clinical assessment, the patient appears to have tolerated the sedation without complications. Patient is recovering as anticipated. Patient will continue to be monitored by nursing and may be discharged when sedation discharge criteria are met per below protocol. Upon Completions of procedure and additional 15 minutes continue every 5 minute vital signs and the P.A.R. score; then discharge to a Phase I or Fast Track to Phase II per the following guidelines: * Discharge Patient to appropriate Phase II area if PAR is 8 or greater or return to pre- procedure baseline. The post - procedure orders will be as directed. * If PAR score is less than 8 or not return to pre-procedure baseline then patient will follow Phase I monitoring till PAR is reached for Phase II. The Phase I may be done in procedure room or may call to secure a Phase I area. * If naloxone or flumazenil are used for reversal, hold in Phase I for continued monitoring from when last reversal dose was given for a minimum of 60 minutes or longer pending the nurse and/or physician discretion of patient condition before discharge to Phase II. Please call the Sedation Physician to re-evaluate and complete post-note for discharge to Phase II area. Do NOT discharge from procedure sedation or Phase 1 until post- sedation evaluation note is complete by procedure /sedation MD Sedation Discharge Instructions to be given to the patient at discharge to home.
--- NOTE | 2018-12-22 15:25 | Cardiac Catheterization ---
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 Clinical evaluation leading to the procedure CAD Presenation: Non STEMI Anginal Classification: CCS IV Heart Failure: No Cardiogenic Shock within 24 Hours: No Cardiac Arrest within 24 Hours: No Imaging Studies Past 6 Months: Yes Stress Studies Past 6 Months: No Standard Exercise Test: No Diagnostic Physicians Name: Bill Thorne MD Status: Elective Closure Device Percutaneous Entry Location: Radial Closure Device: Radial Band Recommendations: Medical Therapy and/or Counseling Intraprocedure Events Significant Disection: No Perforation: No Cardiac Cath Procedure Full Procedure Date December 22, 2018 Pre-Procedure Diagnosis Pre-Procedure Diagnosis: Non STEMI AUC Score AUC Score: 8 Post-Procedure Diagnosis Post-Procedure Diagnosis: Severe CAD and Normal Intracardiac Pressures Procedure(s) Performed Procedure(s) Performed: Coronary Angiography and Left Heart Cath City Administrator Bill Thorne MD Aircraft Charter Dispatcher(s) Marni Estimated Blood Loss Estimated Blood Loss: 5 Medication(s) Medication(s): Fentanyl, Heparin, Lidocaine 1%, Nicardipine, Nitroglycerin and Versed Summary of Findings Indication: NSTEMI Access: 6 Fr slender right radial artery Catheters: [place] Findings: LM -20 to 30% ostial stenosis, calcified LAD -moderate caliber vessel, diffuse calcification, 50 to 60% focal stenosis after second diagonal, diffuse distal disease with focal 90% acute appearing stenosis at the apex. Small diagonals without obstructive disease. Circumflex -moderate caliber vessel, luminal irregularities, OM 2 with 40 to 50% stenosis RCA -dominant, mild distal disease. LVEDP -9 Arterial Closure: TR band Summary: 1. Severe single vessel coronary artery disease -50 to 60% mid LAD, 90% acute apical small LAD 2. Normal intracardiac filling pressure Recommendations: Apical LAD likely culprit lesion for patient's symptoms. Target portion of vessel is small with upstream diffuse calcified disease. Recommend medical management with heparin, clopidogrel, beta-king and improve blood pressure control If recurrent rest symptoms angioplasty to apical LAD could be considered. Recommendations Recommendations: Medical Therapy and/or Counseling Specimens Specimens: None Radiation Exposure (mGy) 895 Contrast (mls) 40 Fluids (cc crystalloids) Fluids (cc crystalloids): 45 Drains Drains: none Anesthesia moderate Procedural Complication(s) None Disposition PCU
[2018-12-22] MEDS: LOSARTAN POTASSIUM 50 MG TAB PO SCH ×2 (15:30→16:41)
[2018-12-22] MEDS: ROSUVASTATIN CALCIUM 20 MG TAB PO SCH (18:12)
[2018-12-22] MEDS: METOPROLOL TARTRATE 25 MG TAB PO SCH (20:07)
--- NOTE | 2018-12-22 21:12 | Consultation Report ---
DATE OF CONSULTATION: 12/22/2018 REASON FOR CONSULT: Chest/arm pain/rule out bronchogenic cyst. HISTORY OF PRESENT ILLNESS: An 88-year-old pleasant white female who resides at [facility] for several years having moved from [place]. She initially moved to [place] at the [place] and after 26 years they , she moved to [facility] 7 years, moved back to [place] and resides at [facility]. A close friend was in attendance during my history taking. Apparently, the patient is followed by Dr. Cantu and has had no significant medical issues recently, but woke up last night with severe left arm pain radiating from the shoulder and shoulder blade, and had an emesis. She took 2 baby aspirin, pain was severe. She apparently had her recent visit as her son was admitted with bacterial meningitis. She was nauseated, sweaty when vomiting, but no shortness of breath. She has a mild cough and the cough is markedly improved since October when she underwent esophageal dilatation with Dr. Davis for a stricture. She states previous to that, she had dysphagia and cough that was made worse when she ingested food. She is a nonsmoker and had minimal secondary exposure. She is treated for hypertension and has been on H2 blockers. ALLERGIES: ORAL AND IV CONTRAST, STRAWBERRIES AND TOMATOES. Details of past medical history, medications, family and social history, I refer you to current and past record. PHYSICAL EXAMINATION: GENERAL: Reveals an elderly white female in no apparent distress and asymptomatic currently. VITAL SIGNS: Blood pressure 163/83, pulse 74 and regular, respiratory rate 16, temperature 36.4, O2 sat 94% on room air. SKIN: Without lesion. HEENT: Atraumatic, normocephalic. PERRLA. Conjunctivae are pink. Sclerae nonicteric. Fundi poorly visualized. NECK: Neck veins are not distended at 45 degrees. No obvious adenopathy in the supra or infraclavicular areas. LUNGS: Relatively clear to P and A. No rales or wheezes. CARDIAC: Regular rhythm. No murmurs or gallops. No S3. ABDOMEN: Soft, protuberant. No evidence of hepatosplenomegaly. EXTREMITIES: No pedal edema, clubbing or cyanosis. NEUROLOGIC: Intact. No lateralizing signs. EKG x2 shows a normal sinus rhythm with no acute changes. Chest x-ray compared to 09/26/2017 shows a stable calcified 6.4 cm subcarinal mass, possibly representing a rim calcified bronchogenic cyst or duplication cyst. 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 While duplication or bronchogenic cyst was suggested. The study was done without contrast and a calcified aneurysm could not definitively be ruled out at that time. The lesion does not appear to have significantly changed in size since 2014. OTHER LABORATORY DATA: White count 9600, H and H 14.5 and 42.7. The indices are normal. PT and PTT within normal limits. Sodium 133, glucose 125, BUN 17, creatinine 1.12. OVERALL ASSESSMENT: An 88-year-old white female with a history of hypertension, esophageal stricture with acute onset of left shoulder and arm pain that does not appear to be cardiac in origin. My suspicion is that this represents a cervical radiculopathy and will need to be worked up for that. The possibility that this calcified subcarinal mass represents an ascending aortic aneurysm as opposed to a bronchogenic or duplication cyst is a possibility. The patient had a severe iodinated contrast issue with swelling of the lip, tongue and throat, but I spoke with Dr. Scott Scanlon from radiology and I think at this point we can repeat the CAT scan of the chest to make sure there has been a significant change in size, so that we can measure it or see an area of increased aneurysmal dilatation or leakage that would suggest additional study would need to be done. My suspicion is that it is not an aneurysm and that this does not provide an answer as to the etiology of her symptoms. MIREILLE
[2018-12-23 02:37] LABS: Partial Thromboplastin Time 54.5 Seconds (21.0-31.0)
[2018-12-23 06:50] LABS: Hemoglobin 14.3 g/dL (12.0-16.0); Mean Corpuscular Volume 88.2 fL (80-100); Mean Platelet Volume 9.9 fL (7.4-10.4); Platelet Count 242 K/uL (130-400); RDW Coefficient of Variation 14.5 % (11.5-14.5); Red Blood Count 4.76 M/uL (4.2-5.4); White Blood Count 9.65 K/uL (4.8-10.8)
[2018-12-23 07:13] LABS: BUN Creatinine Ratio 17.2 (10-20); Calcium 8.9 mg/dl (8.5-10.1); Creatinine Clr Calc Pharmacy 36.5 ml/min; Est GFR (African American) 55.1; Est GFR (Non-African American) 47.5; Magnesium 2.2 mg/dl (1.8-2.4); Potassium 3.8 mmol/L (3.5-5.1)
[2018-12-23] MEDS ORDERED: ASPIRIN 81 MG ECTAB PO SCH (09:00)
[2018-12-23] MEDS ORDERED: CLOPIDOGREL BISULFATE 75 MG TAB PO SCH (09:00)
[2018-12-23] MEDS: METOPROLOL TARTRATE 25 MG TAB PO SCH (09:24)
[2018-12-23] MEDS: ROSUVASTATIN CALCIUM 20 MG TAB PO SCH (09:25)
[2018-12-23] MEDS: PANTOprazole 40 MG TAB PO SCH (09:25)
[2018-12-23] MEDS: LOSARTAN POTASSIUM 50 MG TAB PO SCH (10:27)
--- NOTE | 2018-12-23 10:58 | Progress Note ---
DATE: 12/23/2018 Chart reviewed, patient examined. Events over the past 24 hours noted. Cardiac catheterization performed by Dr. Bill Thorne for what was felt to be unstable angina with an markedly elevated troponin level despite normal EKG at rest. Significant coronary disease was noted with probable non-STEMI with 20%-30% ostial stenosis of the left main and LAD showing 56% focal stenosis at the second diagonal, diffuse distal disease with focal 90% appearing stenosis at the apex. Decision was made to treat this medically. The CT scan of the chest done without contrast shows a stable 6.5 cm calcified rim to a current mediastinal mass that has been stable in exactly the same size since 2015. 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 No further workup is needed from either a pulmonary standpoint or for this mass. We will follow from a distance. Thank you very much for this consultation. MIREILLE
--- NOTE | 2018-12-23 13:14 | Discharge Summary ---
Date of Service December 23, 2018 Admission HPI Per Admitting Provider Mrs. Mckenna is an 88 year old with past medical history of Schatzki's ring, HTN, GERD who presented with chest pain. She states she developed left arm pain at midnight last evening. Pt. took two Aspirin tablets but had episode of vomiting after ingestion. She fell back asleep; pt. woke up around 4 am with left arm, left chest and left shoulder pain. She took two aspirin tablets and called 911. Had chills and diaphoresis, denies SOB, headache or visual changes, LE edema, abdominal pain, dysuria or hematuria. Denies CAD history; has annual EKGs but has never had a stress test, echocardiogram in past or followed with load builder. Pt. did have a stressful day prior to admission -- she learned that her middle son lost his job, her eldest son was admitted to the hospital in [place] for bacterial meningitis and her ex 's dog . ER course: BP was elevated with SBP >180 (likely related to lack of ARB at home). EKG showed no acute ST-T wave changes. Trop was 0.034, will trend q6hr. Admission Exam Per Admitting Provider General: Resting comfortably HEENT: NC/AT; PERRLA with EOMI; [place] conjunctiva, MMM. No erythema of posterior pharynx Neck: Supple and nontender Cardiac: RRR w/o murmurs, gallops or rubs Lungs: CTA bilaterally; No rhonchi, wheezing, or rales Abdomen: Bowel normoactive X 4; Nontender to palpation Extremities: Warm. No edema present Neuro: No focal weakness Skin: No rash Principal Diagnosis NSTEMI Discharge Exam General: Resting comfortably HEENT: NC/AT; PERRLA with EOMI; [place] conjunctiva, MMM. No erythema of posterior pharynx Neck: Supple and nontender Cardiac: RRR Lungs: CTA bilaterally Abdomen: Bowel normoactive X 4; Nontender to palpation Extremities: Warm. No edema present Neuro: No focal weakness Skin: No rash Discharge Data Allergies Allergy/AdvReac Type Severity Reaction Status Date / Time amoxicillin Allergy Intermediate Hives Verified 12/22/18 12:13 Iodinated Contrast- Oral and Allergy Swelling Verified 12/22/18 06:19 IV Dye of Lip/Tongue/Throat strawberry Allergy Hives Verified 12/22/18 06:19 tomato Allergy Hives Verified 12/22/18 06:19 Consultations 12/22/18 07:35 ED Decision to Admit Stat 12/22/18 09:56 Consult Case Management - Discharge Planning Routine 12/22/18 10:03 Consult Pulmonology Routine 12/22/18 11:50 Consult Cardiology Routine Procedures Performed Operation Date: 12/22/18 14:30 Actual Procedures p Cath, Left with Cors and Vent - Willie Thorne MD s Cineradiography w/Routine Exam - Willie Thorne MD Ordered Studies 12/22/18 12:10 CT chest wo con Routine CXR 12/22/18 13:47 CL Cath Imgs for PACS use only Routine Hospital Course (1) NSTEMI (non-ST elevated myocardial infarction): Presented with chest pain concerning for unstable angina; also had multiple stressful events over last 24 hours. EKG was negative for acute changes. Trop peaked at 0.8. Echocardiogram with preserved EF, no wall motion abnormalities. Cardiology consulted. S/p cardiac cath on 12/22/18 --showed severe single vessel coronary artery disease-50 to 60% mid LAD, 90% acute apical small LAD not amenable to stenting; she had normal intracardiac filling pressure Plan for medical management. Started heparin drip post cath, d/c'ed on 12/23 prior to discharge. Received loading dose of Plavix followed by 75 mg daily. Started Crestor 20 mg daily; recommended to take CoQ10 as outpt (h/o statin intolerance) Added Metoprolol 25 mg BID. Will need to follow up with cardiology as outpatient. Cardiology recommends angioplasty to the LAD lesion if has persistent anginal symptoms. (2) Elevated troponin: Trop increased in setting of NSTEMI, see above. (3) Hypertension: Held home Irbesartan (non-formulary); Losartan 50 mg daily as inpt. Added Metoprolol 25 mg BID. (4) HLD (hyperlipidemia): Elevated cholesterol noted on lipid panel. Pt. has been statin intolerant in the past due to myalgias. Started Crestor 20 mg daily and recommend adding co-every 10 at home Will need LFTs and repeat lipid panel in 4 to 6 weeks (5) GERD (gastroesophageal reflux disease): PPI daily. (6) Schatzki's ring: Follows with Dr. Davis; s/p EGD in October 2018. (7) Stage III chronic kidney disease: Renally dosed all meds. 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 Consulted Dr. Noyola from pulmonary, appreciate input. No intervention necessary. (9) Hyperglycemia: Morning BG levels elevated during this admission. Will need outpatient hemoglobin A1C. (10) DVT prophylaxis: Heparin drip. Stable for discharge to home on 12/23/18. Total Time Total Time Spent Total Time Spent (In Minutes): >30 minutes Total Time Includes: Examination of the Patient, Discharge Planning, Medication Reconciliation, Communication With Other Providers and Other Discharge Plan Discharge Items Patient Disposition: Home - Self-Care Reason For Visit: CHEST PAIN Discharge Diagnosis: NSTEMI, Severe CAD Condition: Good Discharge Goals: Decrease discomfort, Diagnostic testing, Improve disease control, Improve function, Increase independence, Improve nutritional status and Prevent disease Activity: As commented below Non-emergency contact: Primary Care Provider and Business Applications Developer Call non-emergency contact if: you have any medication questions, your symptoms worsen, your pain is not controlled, your pain is worsening, your pain is unusual for you, your pain is concerning for you and you have a fever Follow-up/Referrals: Floyd Jeffery MD [Physician] - (Please follow up with cardiology in 1-2 weeks. ) Judith De Oliveira [Primary Care Provider] - Diet: Heart Healthy Add Provider Instructions: ACTIVITY RECOMMENDATIONS: Excess manipulation of the wrist should be avoided for the next 24-48 hours. * No lifting over 2 pounds (approximately a 1/2 gallon of milk) with the utilized arm for 24 hours. * No strenuous activity such as bowling or tennis for 3 days. * Keep the site of the procedure covered with a bandage for 24 hours. *You may shower the day after the procedure. Do not take a tub bath or submerge the puncture site in water for the next 3 days. *Do not operate any motorized equipment for 3 days. SPECIAL CARE INSTRUCTIONS: The site may be slightly bruised and sore following your procedure. Should any of the following occur, contact the Dr. who performed your procedure. 1. Redness/inflammation, swelling, chills, or fever, or colored drainage at procedure site within 3-7 days after your procedure. 2. Coldness, discoloration, ongoing numbness, severe pain, or swelling. Expect mild tingling of hand and tenderness at the puncture site for up to three days. If this persists beyond three days, or other symptoms develop, notify the Dr. who performed your procedure. BLEEDING: If the procedure site on your wrist begins to bleed, do not panic 1. Place 1 or 2 fingers firmly just slightly above the insertion site to stop the bleeding. You may be able to feel your pulse as you hold pressure. 2. Lift your finger after 5 minutes to see if the bleeding has stopped. 3. Once the bleeding has stopped, gently wipe the wrist area clean with a bandage. * If the bleeding from your wrist does not stop after 10 minutes, or if there is a large amount of bleeding or spurting, call 911 (do not drive yourself to the hospital). SKIN IRRITATION: * You may experience some redness and/or swelling in the area where radiation was administered. If any skin irritation occurs, please contact your family physician. FOLLOW UP VISIT: Keep any scheduled doctor appointments. Additional Instructions: 1. NSTEMI * Please continue Aspirin 81 mg daily as prescribed. * Plavix 75 mg daily & Metoprolol 25 mg twice daily have been started; prescriptions were sent to your pharmacy. * Crestor 20 mg daily has also been started; it is recommended to take CoQ10 with a statin agent to prevent myalgias. * Please schedule a follow up with cardiology in 1-2 weeks. 2. Lung mass * You will need routine follow up imaging of lung mass; no surgical intervention indicated at this time. 3. Please schedule a follow up appointment with your primary care provider in 1- 2 weeks. Prescriptions: New clopidogrel 75 mg Tablet 75 mg PO QAM 30 Days Qty: 30 RF: 2 metoprolol tartrate 25 mg Tablet 25 mg PO BID 30 Days Qty: 60 RF: 2 rosuvastatin [Crestor] 20 mg Tablet 20 mg PO QAM 30 Days Qty: 30 RF: 2 coenzyme Q10 100 mg capsule 100 mg PO DAILY Qty: 1 RF: 0 Continued pantoprazole 40 mg tablet,delayed release (DR/EC) 40 mg PO DAILY RF: 0 irbesartan 150 mg tablet 150 mg PO DAILY RF: 0 Changed aspirin 81 mg Tablet,Delayed Release (Dr/Ec) 81 mg PO DAILY Qty: 0 RF: 0 Stand-Alone Forms: My [facility] Discharge Orders: Discharge Order (Routine); Ordered 12/23/18 Ordered By: Bessy Garsia Admission Data Admit Date/Time: 12/22/18 17:05 Attending Provider: Bessy Garsia Admit Provider: Bessy Garsia Primary Care Provider: Judith De Oliveira Other Providers: Floyd Jeffery ; Wilfredo Abreu ; Elier Rascon Service: Telemetry Other Interventions: Discharge Summary Assessment (RN) Last Done: 12/23/18 13:38 Pending Studies at Discharge: No DC Date/Time DO NOT enter until pt leaves facility: 12/23/18 15:12 Supervising Physician Co-Signing Physician Notes PA Supervision Note: I personally saw and examined the patient. I verified all youssef points and agree with RAMON Hitchcock with the following exceptions and/or additions: Doing very well, no further chest or LUE pain since admission. BPs better controlled. No arrhythmias on tele. VSS RRR no mgr CTAB no wcr Abd soft NT ND Ext no edema NSTEMI with unstable angina, distal apical LAD lesion not amenable to stenting -med management of severe CAD as above -close f/u with Cardio and PCP after dc Stable for dc to home
== END 2018-12-23 15:12 | disposition home or self-care (01) | DRG 282 ==
LOC: ED 05:52 → 2N 05:52 → 2E 15:15
DX: N18.3 Chronic kidney disease, stage 3 (moderate); R22.2 Localized swelling, mass and lump, trunk; I21.4 Non-ST elevation (NSTEMI) myocardial infarction; K21.9 Gastro-esophageal reflux disease without esophagitis; R73.9 Hyperglycemia, unspecified; Z79.82 Long term (current) use of aspirin; I12.9 Hypertensive chronic kidney disease with stage 1 through stage 4 chronic kidney disease, or unspecified chronic kidney disease; K22.2 Esophageal obstruction; Z88.1 Allergy status to other antibiotic agents; E78.5 Hyperlipidemia, unspecified

== ENCOUNTER 2019-12-28 23:54 | Observation (INO) ==
[2019-12-29] MEDS ORDERED: ASPIRIN CHEW 324 MG PO STA (00:04)
[2019-12-29 00:14] LABS: Basophils # (auto) 0.03 K/uL (0-0.2); Basophils % (auto) 0.4 %; Eosinophils # (auto) 0.18 K/uL (0-0.5); Eosinophils % (auto) 2.7 %; Hematocrit (blood only) 41.3 % (37-47); Hemoglobin 13.9 g/dL (12.0-16.0); Immature Granulocytes # (auto) 0.01 K/uL (0.00-0.02); Immature Granulocytes % (auto) 0.1 %; Lymphocytes # (auto) 2.59 K/uL (1.2-3.4); Lymphocytes % (auto) 38.7 %; Mean Corpuscular Hemoglobin 30.6 pg (25-34); Mean Corpuscular Hgb Conc 33.7 g/dL (32-36); Mean Platelet Volume 10.5 fL (7.4-10.4); Monocytes # (auto) 0.73 K/uL (0.11-0.59); Monocytes % (auto) 10.9 %; Neutrophils # (auto) 3.15 K/uL (1.4-6.5); Neutrophils % (auto) 47.2 %; Platelet Count 177 K/uL (130-400); RDW Coefficient of Variation 14.7 % (11.5-14.5); Red Blood Count 4.54 M/uL (4.2-5.4); White Blood Count 6.69 K/uL (4.8-10.8)
[2019-12-29] MEDS ORDERED: NITROGLYCERIN 2% OINTMENT 30GM TUBE EXT ONE (00:16)
[2019-12-29 00:37] LABS: Alanine Aminotransferase 26 U/L (12-78); Albumin Level 3.7 gm/dl (3.4-5.0); Aspartate Aminotransferase 23 U/L (15-37); BUN Creatinine Ratio 18.3 (10-20); Blood Urea Nitrogen 16 mg/dl (7-18); Calcium 9.3 mg/dl (8.5-10.1); Carbon Dioxide 26 mmol/L (21-32); Chloride 104 mmol/L (98-107); Creatinine Clr Calc Pharmacy 44.8 ml/min; Est GFR (African American) 68.5; Est GFR (Non-African American) 59.1; Glucose 100 mg/dl (70-99); Lipase 192 U/L (73-393); Sodium 138 mmol/L (136-145)
[2019-12-29 00:41] LABS: Albumin Globulin Ratio 1.2 (0.9-2); Alkaline Phosphatase 74 U/L (45-117); Bilirubin,Total 0.7 mg/dl (0.2-1); Globulin 3.1 gm/dl (2.5-4.0); Total Protein 6.8 gm/dl (6.4-8.2); Troponin I < 0.015 ng/ml (0-0.045)
[2019-12-29] MEDS: HydrALAZINE HCL 20 MG/ML VIAL IV ONE ×2 (01:19→02:39)
--- NOTE | 2019-12-29 01:31 | Emergency Department Note ---
History of Present Illness General Chief complaint: Cardiac Assessment Stated complaint: CARDIAC SYMPTOMS Time Seen by Provider: 12/28/19 23:56 Source: patient and RN notes reviewed Mode of arrival: EMS Limitations: no limitations History of Present Illness Provider complaint: Left arm pain, history of non-STEMI Maximum Pain Intensity: 5 This patient is an 89-year-old female who presents to the emergency department with complaints of left arm pain. Patient has been dealing with the pain off and on for most of the day. She saw her PCP this morning and was told that her EKG was normal. It was recommended that she present to the emergency department at that time however the patient declined. She did take nitroglycerin earlier today and did have some relief of her discomfort. Patient states her physician told her that her blood pressure was elevated. Just prior to arrival, the p atient experienced more severe onset of the left arm pain. She did call the ambulance as she was growing concerned. Patient states 1 year ago she had a non-ST elevation IA and subsequent cardiac catheterization and did not have a stent placed. This is a very similar pain to what the patient experienced at the time of her IA. She states she never felt a substernal chest pressure or shortness of breath. She states she did take her medications today including metoprolol and irbesartan. She denies experiencing chest pain, shortness of breath, fevers, chills, vomiting or diarrhea. Home Medications Home Medications Medication Instructions Recorded Confirmed Type irbesartan 150 mg PO DAILY 12/22/18 07/30/19 History pantoprazole 40 mg PO DAILY 12/22/18 07/30/19 History aspirin 81 mg PO DAILY #0 tab 12/23/18 07/30/19 Rx nitroglycerin 0.4 mg sublingual 0.4 mg SL DIRECTED PRN 01/01/19 07/30/19 History tablet levothyroxine 50 mcg capsule 50 mcg PO DAILY 07/10/19 07/30/19 History cholecalciferol (vitamin D3) 1,000 unit PO DAILY 07/24/19 07/30/19 History [Vitamin D3] multivitamin 1 tab PO DAILY 07/24/19 07/30/19 History flaxseed oil PO DAILY 07/30/19 07/30/19 History metoprolol succinate 25 mg 25 mg PO DAILY #90 tab 09/03/19 Rx tablet,extended release 24 hr Allergies Allergy/AdvReac Type Severity Reaction Status Date / Time amoxicillin Allergy Intermediate Hives Verified 07/30/19 11:02 bee pollen Allergy . Verified 07/30/19 11:02 Fish Containing Products Allergy . Verified 07/30/19 11:02 hornet venom Allergy . Verified 07/30/19 11:02 Iodinated Contrast Media Allergy Swelling Verified 07/30/19 11:02 [Iodinated Contrast- Oral of and IV Dye] Lip/Tongue/Throat strawberry Allergy Hives Verified 07/30/19 11:02 Wasp and Yellow Jackets Allergy . Uncoded 07/30/19 11:02 Past Med/Surg History Medical History DVT (deep venous thrombosis) Following of first son, >65 years ago. GERD (gastroesophageal reflux disease) HTN (hypertension), benign NSTEMI (non-ST elevated myocardial infarction) Schatzki's ring Surgical History S/P tonsillectomy and adenoidectomy Tubal ligation status Family History Other No pertinent family history in first degree relatives Social History Smoking Status: Former smoker Age Quit Using Tobacco: 27; Hx Alcohol Use: No Hx Substance Use: No Preferred Language: Iraqi Communication Ability: Effective Document Management Consultant Required: No Beliefs That Will Affect Care: None marital status: Current Living Situation: Alone current occupational status: retired 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 Feels Safe at Home: Yes Review of Systems See HPI for pertinent positives & negatives. and A total of 10 systems reviewed and were otherwise negative Physical Exam Vital Signs Vital Signs - 24 hr 12/29/19 00:01 12/29/19 00:07 12/29/19 00:24 Temperature 36.9 C Temperature Source Oral Pulse Rate 70 Pulse Rate [Apical] Respiratory Rate 12 Respiratory Effort / Characteristics Respiratory Depth Normal Blood Pressure 201/85 H Blood Pressure [Left Arm] Blood Pressure Mean 123 Blood Pressure Mean [Left Arm] Pulse Oximetry 99 Oxygen Delivery Method Room Air Room Air Room Air Sepsis Recent Fever Within 48 Hours No Sepsis New/Unexplained Change in Mental Status N/A Sepsis Action Taken by Nursing No Action Required 12/29/19 01:29 Temperature Temperature Source Pulse Rate Pulse Rate [Apical] 62 Respiratory Rate 18 Respiratory Effort / Characteristics Non-Labored Respiratory Depth Normal Blood Pressure Blood Pressure [Left Arm] 157/83 H Blood Pressure Mean Blood Pressure Mean [Left Arm] 107 Pulse Oximetry 98 Oxygen Delivery Method Room Air Sepsis Recent Fever Within 48 Hours Sepsis New/Unexplained Change in Mental Status Sepsis Action Taken by Nursing Vital signs reviewed. General: Well-appearing 89-year-old female, in no significant distress. HEENT: No scleral icterus, PERRLA, neck supple. Atraumatic. Cardiovascular: Regular rate and rhythm, no extra sounds. Pulmonary: Clear to auscultation bilaterally, normal work of breathing. Abdomen: Soft, nontender, nondistended, positive bowel sounds. Musculoskeletal: Atraumatic, no peripheral edema. Neurologic: Patient awake alert and oriented x 3 Skin: Warm, dry, no rash Course Administered Medications Discontinued Medications Aspirin (Aspirin) 324 mg PO NOW STA Stop: 12/29/19 00:05 Last Admin: 12/29/19 00:23 Dose: Not Given Documented by: [id number] Nitroglycerin (Nitro-Bid 2%) 0.5 inch EXT NOW ONE Stop: 12/29/19 00:17 Last Admin: 12/29/19 00:22 Dose: 0.5 inch Documented by: [id number] Medical Decision Making Differential Diagnosis Differential diagnosis: Acute coronary syndrome, pulmonary embolus, aortic dissection, musculoskeletal pain, pneumonia, pleural effusion, pneumothorax, GERD, hypertensive urgency Medical Records Attestation: I reviewed the patient's medical records. Home Medications Current Medication List: was personally reviewed by me Laboratory Data Attestation: I reviewed the patient's lab results. Result diagrams: 12/29/19 00:02 12/29/19 00:02 Lab Results 12/29/19 12/29/19 Range/Units 00:02 00:02 WBC 6.69 (4.8-10.8) K/uL RBC 4.54 (4.2-5.4) M/uL Hgb 13.9 (12.0-16.0) g/dL Hct 41.3 (37-47) % MCV 91.0 (80-100) fL MCH 30.6 (25-34) pg MCHC 33.7 (32-36) g/dL RDW Std Deviation 49.0 H (36.4-46.3) fL RDW Coeff of Miriam 14.7 H (11.5-14.5) % Plt Count 177 (130-400) K/uL MPV 10.5 H (7.4-10.4) fL Immature Gran % (Auto) 0.1 % Neut % (Auto) 47.2 % Lymph % (Auto) 38.7 % [place] % (Auto) 10.9 % Eos % (Auto) 2.7 % Baso % (Auto) 0.4 % Neut # (Auto) 3.15 (1.4-6.5) K/uL Lymph # (Auto) 2.59 (1.2-3.4) K/uL [place] # (Auto) 0.73 H (0.11-0.59) K/uL Eos # (Auto) 0.18 (0-0.5) K/uL Baso # (Auto) 0.03 (0-0.2) K/uL Immature Gran # (Auto) 0.01 (0.00-0.02) K/uL Sodium 138 (136-145) mmol/L Potassium 4.0 (3.5-5.1) mmol/L Chloride 104 (98-107) mmol/L Carbon Dioxide 26 (21-32) mmol/L Anion Gap 8.0 (3-11) BUN 16 (7-18) mg/dl Creatinine 0.88 (0.6-1.2) mg/dl Est Cr Clr Drug Dosing 44.8 ml/min Est GFR ( Amer) 68.5 Est GFR (Non-Af Amer) 59.1 BUN/Creatinine Ratio 18.3 (10-20) Glucose 100 H (70-99) mg/dl Calcium 9.3 (8.5-10.1) mg/dl Total Bilirubin 0.7 (0.2-1) mg/dl AST 23 (15-37) U/L ALT 26 (12-78) U/L Alkaline Phosphatase 74 (45-117) U/L Troponin I < 0.015 (0-0.045) ng/ml Total Protein 6.8 (6.4-8.2) gm/dl Albumin 3.7 (3.4-5.0) gm/dl Globulin 3.1 (2.5-4.0) gm/dl Albumin/Globulin Ratio 1.2 (0.9-2) Lipase 192 (73-393) U/L Specimen Hemolysis Imaging Data Attestation: I personally reviewed and interpreted this imaging study as follows: My Impression: Chest x-ray to my interpretation reveals no focal lung consolidation or failure. Normal cardiomediastinal silhouette. ECG Data Attestation: I personally reviewed and interpreted this ECG as follows: Indication: + chest pain Rate (beats per minute): 71 Rhythm: + normal sinus ECG Intervals/blocks: + Normal QRS and + Normal QT-c ECG [place]: + Normal ECG ST segments: + Normal ST segments ECG Findings: no PACs and no PVCs Blood Pressure Blood Pressure Findings: Elevated blood pressure Blood Pressure Disposition: further management by hospitalist ADRY Narrative This patient was evaluated and appeared to be in no significant distress. IV access was obtained and laboratory work was drawn. An order for cardiac monitoring was placed and the patient is noted to be in a normal sinus rhythm. Patient's blood pressure is elevated with a systolic just over 200. 1/2 inch of nitroglycerin paste was applied. Patient's pain in the left arm did improve to "just a numbness." At the time of my reevaluation the patient's blood pressure was still elevated at 180 systolic. I did order 5 mg of IV hydralazine and spoke with the patient's nurse. Upon their reevaluation the patient's blood pressure had improved to 150 systolic. The hydralazine was held. Patient's laboratory work reveals a normal troponin. EKG reveals no evidence of ST elevation or ischemic change otherwise. Chest x-ray is clear. Given the patient's history, advanced age and blood pressure, the hospitalist has been consulted for further management. Patient is aware of this plan and agrees. Impression & Plan Atypical chest pain, Hypertensive urgency, H/O non-ST elevation myocardial infarction (NSTEMI) Discharge Plan Visit Data Chief Complaint: Cardiac Assessment Stated Complaint: CARDIAC SYMPTOMS ED Provider: Yue Mendoza Discharge Problem: Atypical chest pain, Hypertensive urgency, H/O non-ST elevation myocardial infarction (NSTEMI) Forms Stand Alone Forms: My [facility] [employer] Prescriptions Prescriptions: No Action metoprolol succinate 25 mg tablet extended release 24 hr 25 mg PO DAILY Qty: 90 RF: 3 flaxseed oil PO DAILY RF: 0 nitroglycerin 0.4 mg tablet, sublingual 0.4 mg SL DIRECTED PRN (Reason: Chest Pain) RF: 0 levothyroxine 50 mcg capsule 50 mcg PO DAILY RF: 0 multivitamin Tablet 1 tab PO DAILY RF: 0 cholecalciferol (vitamin D3) [Vitamin D3] 25 mcg (1,000 unit) Capsule 1,000 unit PO DAILY RF: 0 pantoprazole 40 mg tablet,delayed release (DR/EC) 40 mg PO DAILY RF: 0 irbesartan 150 mg tablet 150 mg PO DAILY RF: 0 aspirin 81 mg Tablet,Delayed Release (Dr/Ec) 81 mg PO DAILY Qty: 0 RF: 0
--- NOTE | 2019-12-29 02:56 | History & Physical Report ---
Date of Service December 29, 2019 Assessment & Plan (1) Atypical chest pain: Pt is a 89yo female with a PMHx of CAD with significant stenosis of the LAD, HTN, HLD, Hypothyroidism and GERD who presents with worsening left arm pain associated with numbness and tingling and was admitted for ACS rule-out. ACS rule-out -Left arm dull pain from shoulder down to fingers associated with numbness and tingling -Denies chest pain, SOB, N/V, radiation of the pain elsewhere -pain relieved by nitro and nitro paste, currently down to a 0 from 8 when it started -EKG in ED with NSR, no evidence of ischemia -Trops x1 in ED negative, will continue to trend q6h -Echo 2019: LVH, EF 65-70%, no wall motion abnormalities -Given Hx of prior need for cath, consult placed to cardiology -continue home metoprolol succinate 25mg daily and irbesartan 150mg, continue baby aspirin -continue nitropaste application q6h scheduled -admit to PCU/tele for continuous cardiac monitoring Nasal congestion/Rhinorhea -less lkely infectious given labs and imaging -possibly allergic HTN -continue home irbesartan 150mg daily, continue metoprolol succinate 25mg daily Hypothyroidism -continue home Synthroid 50mcg daily GERD -continue home protonix 40mg FEN/GI: Vegan diet, HH DVT prophylaxis: Heparin SQ BID CODE STATUS: DNR/DNI Dispo: PCU/tele History of Present Illness Primary Care Provider: [facility] Pt is a 89yo female with a PMHx of CAD with significant stenosis of the LAD, HTN, HLD, Hypothyroidism and GERD who presents with worsening left arm pain associated with numbness and tingling and was admitted for ACS rule-out. Of note, in December 2018, she underwent cardiac cath and was found to have significant stenosis of her LAD. No stent was placed at that time, and she was b eing medically managed. Pt states that the pain in the left arm started about 7am the day of admission. Rated it as 8/10, dull with no radiation. However it was associated with numbness and tingling down the arm into the fingers. Denies any associated chest pain, SOB. N/V, diaphoresis. States her mother had a Hx of CHF. Pt was a smoker about 60 years ago and smoked 1ppd during that time. She lives at [facility], exercises regularly and is a vegan, stating she switched after her last heart event in 2019 to help cut down on fats. Of note on review of systems she admits to being continually nasally congested. Denies any fevers, chills or night sweats, cough or sore throat during this COVID pandemic. States she continually has to blow her nose. States she has trouble breathing with this whenever she lays down flat. Allergies Allergy/AdvReac Type Severity Reaction Status Date / Time amoxicillin Allergy Intermediate Hives Verified 07/30/19 11:02 bee pollen Allergy . Verified 07/30/19 11:02 Fish Containing Products Allergy . Verified 07/30/19 11:02 hornet venom Allergy . Verified 07/30/19 11:02 Iodinated Contrast Media Allergy Swelling Verified 07/30/19 11:02 [Iodinated Contrast- Oral of and IV Dye] Lip/Tongue/Throat strawberry Allergy Hives Verified 07/30/19 11:02 Wasp and Yellow Jackets Allergy . Uncoded 07/30/19 11:02 Home Medications Home Medications Medication Instructions Recorded Confirmed Type irbesartan 150 mg PO DAILY 12/22/18 07/30/19 History pantoprazole 40 mg PO DAILY 12/22/18 07/30/19 History aspirin 81 mg PO DAILY #0 tab 12/23/18 07/30/19 Rx nitroglycerin 0.4 mg sublingual 0.4 mg SL DIRECTED PRN 01/01/19 07/30/19 History tablet levothyroxine 50 mcg capsule 50 mcg PO DAILY 07/10/19 07/30/19 History cholecalciferol (vitamin D3) 1,000 unit PO DAILY 07/24/19 07/30/19 History [Vitamin D3] multivitamin 1 tab PO DAILY 07/24/19 07/30/19 History flaxseed oil PO DAILY 07/30/19 07/30/19 History metoprolol succinate 25 mg 25 mg PO DAILY #90 tab 09/03/19 Rx tablet,extended release 24 hr Past Med/Surg History Medical History DVT (deep venous thrombosis) Following of first son, >65 years ago. GERD (gastroesophageal reflux disease) HTN (hypertension), benign NSTEMI (non-ST elevated myocardial infarction) Schatzki's ring Surgical History S/P tonsillectomy and adenoidectomy Tubal ligation status Family History Other No pertinent family history in first degree relatives Social History Smoking Status: Former smoker Age Quit Using Tobacco: 27; Second Hand Exposure: No; Hx Alcohol Use: Yes Alcohol type: beer and wine Hx Substance Use: No Preferred Language: Martiniquais Communication Ability: Effective Road Repairer Required: No Beliefs That Will Affect Care: None marital status: Current Living Situation: Alone current occupational status: retired 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 Feels Safe at Home: Yes Review of Systems Constitutional: no fever, no chills and no sweats Eyes: no worsening vision Ear, Nose, Mouth, Throat: + nasal congestion and + nasal discharge; no sore throat Respiratory: no cough and no dyspnea Cardiovascular: + orthopnea; no chest pain, no dyspnea, no palpitations and no edema Gastrointestinal: no abdominal pain, no nausea, no vomiting, no constipation, no diarrhea/loose stools and no blood in stools Genitourinary: no dysuria Musculoskeletal: no problem reported Integumentary: no rash Neurologic: + tingling and + numbness; no headache(s) and no confusion Psychiatric: no confusion Physical Exam Physical Exam: General: Alert, oriented. No acute distress, laying in bed with mask on Skin: No noted rashes or bruises Psych: Appropriate mood and affect Neuro: No gross deficits HEENT: NC/AT, PERRLA, EOMI, oropharynx moist. Chest: Nontender to palpation. CV: RRR, Normal s1, s2. No murmurs appreciated Resp: Breath sounds clear bilaterally, no increased effort of breathing. No crackles/rhonchi/rales. Abdomen: Soft, nontender, nondistended. No guarding. No organomegaly appreciated. Extremities: No edema in lower extremities bilaterally. Results & Data Results & Data ([facility]) Vital Signs (Past 12 Hours) Vital Signs Temp Pulse Pulse Resp BP BP Pulse Ox 12/29/19 01:29 62 18 157/83 H 98 12/29/19 00:01 36.9 C 70 12 201/85 H 99 Code Status & VTE Plan VTE Prophylaxis Plan VTE Prophylaxis will be ordered: Yes Supervising Physician Co-Signing Physician Notes Attending addendum: I have physically seen this patient, have supervised the medical residents activities, and agree with the H&P unless as otherwise noted. Assessment and Plan: Atypical chest pain/severe single-vessel CAD/hypertension- The patient will be admitted to telemetry for serial cardiac enzymes, serial EKG's, cardiac rhythm monitoring and a 2-D echocardiogram with Dopplers. Continue metoprolol succinate 25 mg p.o. daily, irbesartan 150 mg daily and aspirin 81 mg daily. Nitropaste 1 inch anterior chest wall every 6 hours Consult cardiology Hypothyroidism- Continue Synthroid 50 mcg daily. GERD- Continue pantoprazole 40 mg daily. Remainder orders and notations as noted Resident Activity Tracking Resident Involvement: Resident Care Provided Care Provided: Adult [facility] Medicine
[2019-12-29] MEDS: NITROGLYCERIN 2% OINTMENT 30GM TUBE EXT SCH ×2 (06:10→11:58)
[2019-12-29] MEDS ORDERED: LEVOTHYROXINE SODIUM 50 MCG TABLET PO SCH (06:30)
--- NOTE | 2019-12-29 06:43 | XRay Report ---
XR chest 1V portable CLINICAL HISTORY: Chest Pain dyspnea COMPARISON STUDY: 07/24/2019 FINDINGS: Unchanged 6 cm calcified density inferior to the fatimah. Lungs are considered clear. Diaphr agms are smooth. IMPRESSION: Chronic change. No acute process. ACT 112: Negative or not required by law. The above report was generated using voice recognition software. It may contain grammatical, syntax or spelling errors. Electronically signed by: Scott Scanlon M.D. 12/29/2019 6:42 AM
[2019-12-29] MEDS ORDERED: PANTOprazole 40 MG TAB PO SCH (09:00)
[2019-12-29] MEDS ORDERED: HEPARIN SOD 5,000 UNIT/0.5 ML VIAL SQ SCH (09:00)
[2019-12-29] MEDS ORDERED: ASPIRIN 81 MG ECTAB PO SCH (09:00)
[2019-12-29] MEDS ORDERED: METOPROLOL SUCC 25MG EXT REL TAB PO SCH (09:00)
--- NOTE | 2019-12-29 09:08 | Cardiology Consultation ---
Date of Consultation December 29, 2019 Assessment & Plan (1) Atypical chest pain: Patient's symptoms of left arm discomfort are somewhat reminiscent of her prior NSTEMI. However, a review of her record in interview with the patient suggested she does have some atypical left arm symptoms at times. Much of her symptom involves a sense of paresthesias and forearm discomfort. I think there is some concern that this represents a noncardiac problem such as neuropathy or musculoskeletal problem. Despite an extended period of symptoms her biomarkers are normal. She has not been having symptoms of exertional discomfort she appears to be able to perform a reasonable workload at home and exercises regularly. I think the likelihood of an acute coronary syndrome is very low. I think she can be safely discharged home. She should continue her outpatient medical regimen including aspirin, ARB and metoprolol. She has been tried on statin therapy in the past with intolerance. She has also tried Zetia previously with facial swelling. she already has scheduled follow-up with her primary barge master in a few days. (2) CAD (coronary artery disease): She is known to have obstructive coronary disease involving the distal LAD. This is felt to perfuse a small territory and not a good target for revascularization at the time of her initial N STEMI 1 year ago. She appears to have done well since that time. She has not report symptoms of angina or coronary insufficiency leading up to her admission. As noted previously she does have occasional symptoms of arm discomfort which are atypical in nature. I think she could continue her outpatient medical regimen as noted above. (3) Hypertension: Her blood pressure is elevated here in the hospital. The patient had been taking her blood pressure regularly with some time but stopped recently. She was surprised note that her blood pressure was high. She did measure it at home prior to proceeding to the hospital yesterday and noted it was high as well. She would likely benefit from a more aggressive antihypertensive regimen. This could be accomplished either by increasing her irbesartan or adding a diuretic. Her heart rate is on the lower side and I think increasing her metoprolol is a less attractive option. History of Present Illness Reason for Consultation: Left arm pain Requesting Physician: Damian Attending Physician: Roldan Hughes, DO History of Present Illness the patient is an 89-year-old woman with a history of an NSTEMI in December 2018 who developed symptoms of left arm discomfort early yesterday morning. Patient states that without any specific activity she began to experience some discomfort in the left forearm. She described this as moderate in intensity and did involve some paresthesias in the forearm as well. Over a short. This discomfort generalized to include most of the left arm and portions of the left shoulder. She did not have symptoms of chest discomfort. this discomfort did not seem to change with inspiration or use of the left arm. The did this appear to be some variation in the site of discomfort over the course of several hours. She did take nitroglycerin initially which seemed to improve her symptoms but not alleviate them entirely. She mentioned her symptoms to the PA who works at her residence and was advised to go to the emergency room. However, the patient felt that her symptoms were improving and in fact nearly resolved later in the evening. however, around bedtime her symptoms seem to worsen again and she decided to present to the emergency room for evaluation. The patient continued to have some symptoms of paresthesias in the left arm as well. She describes the symptoms as similar to those she experienced at the time of her presentation in 2019. However, the symptoms were much less severe. She is an otherwise active individual or participates in exercises at her residence. Lately she has been feeling more "washed out" than usual. However, she is not have symptoms left arm discomfort or chest pain associated with exercise. She does not have associated dyspnea. She has had rare and fleeting palpitation. She denies any recent syncope. Her current symptoms only include feeling sleepy and tired. No current symptoms of chest pain or left arm pain. Allergies Allergy/AdvReac Type Severity Reaction Status Date / Time amoxicillin Allergy Intermediate Hives Verified 07/30/19 11:02 bee pollen Allergy . Verified 07/30/19 11:02 Fish Containing Products Allergy . Verified 07/30/19 11:02 hornet venom Allergy . Verified 07/30/19 11:02 Iodinated Contrast Media Allergy Swelling Verified 07/30/19 11:02 [Iodinated Contrast- Oral of and IV Dye] Lip/Tongue/Throat strawberry Allergy Hives Verified 07/30/19 11:02 Wasp and Yellow Jackets Allergy . Uncoded 07/30/19 11:02 Home Medications Home Medications Medication Instructions Recorded Confirmed Type irbesartan 150 mg PO DAILY 12/22/18 07/30/19 History pantoprazole 40 mg PO DAILY 08/02/19 03/09/20 History aspirin 81 mg PO DAILY #0 tab 12/23/18 07/30/19 Rx nitroglycerin 0.4 mg sublingual 0.4 mg SL DIRECTED PRN 01/01/19 07/30/19 History tablet levothyroxine 50 mcg capsule 50 mcg PO DAILY 07/10/19 07/30/19 History cholecalciferol (vitamin D3) 1,000 unit PO DAILY 07/24/19 07/30/19 History [Vitamin D3] multivitamin 1 tab PO DAILY 07/24/19 07/30/19 History flaxseed oil PO DAILY 07/30/19 07/30/19 History metoprolol succinate 25 mg 25 mg PO DAILY #90 tab 09/03/19 Rx tablet,extended release 24 hr Patient History Medical History DVT (deep venous thrombosis) Following of first son, >65 years ago. GERD (gastroesophageal reflux disease) HTN (hypertension), benign NSTEMI (non-ST elevated myocardial infarction) Schatzki's ring Surgical History S/P tonsillectomy and adenoidectomy Tubal ligation status Family History Other No pertinent family history in first degree relatives Social History Smoking Status: Former smoker Age Quit Using Tobacco: 27; Second Hand Exposure: No; Do You Dip or Chew Tobacco: No; Tobacco Cessation Education Requested by Patient: No Hx Alcohol Use: Yes Alcohol type: beer and wine Hx Substance Use: No Preferred Language: Yakut Communication Ability: Effective Supervisor Sterile Processing Required: No Beliefs That Will Affect Care: None marital status: Current Living Situation: Alone current occupational status: retired 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 Other Information That Helps Us Care for You: No Feels Safe at Home: Yes Review of Systems Review of Systems: All systems reviewed & are unremarkable except as noted in HPI & below Very mild lower extremity edema at the end of the day. Physical Exam Physical Exam: She is alert and oriented x3. Mood affect appear normal. She answered all questions appropriately. HEENT: Sclerae are anicteric. Pupils are equal and reactive to light and accommodation. Extraocular movements were intact. Neuro: Cranial nerves intact Neck: Examination of the submandibular region did not reveal any significant lymphadenopathy. Carotids are palpable bilaterally and free of bruits on auscultation. There was no evidence of jugular venous distention. The thyroid was not enlarged. Lungs: Lungs are clear to auscultation bilaterally. There are no rales wheezes or rhonchi. She has normal respiratory effort without use of accessory muscles. There is normal pulmonary excursion. Cardiac: The rhythm was regular. S1 and S2 were normal. Soft crescendo systolic murmur. The PMI was not markedly displaced on palpation. Abdomen: The abdomen was soft and nontender. Extremities: Patient has bilateral radial pulses that are equal in intensity. There is no evidence cyanosis or clubbing. There was no evidence of significant peripheral edema bilaterally. Skin: There are no rashes noted on examination today. Results & Data ([facility]) Vital Signs (Past 12 Hours) Vital Signs Temp Pulse Pulse Resp BP BP BP 12/29/19 07:18 36.5 C 63 18 168/87 H 12/29/19 03:17 162/102 H 12/29/19 03:00 36.5 C 64 18 183/96 H 12/29/19 01:29 62 18 157/83 H 12/29/19 00:01 36.9 C 70 12 201/85 H Pulse Ox 12/29/19 07:18 97 12/29/19 03:17 12/29/19 03:00 95 12/29/19 01:29 98 12/29/19 00:01 99 Laboratory Results Abnormal Lab Results 12/29/19 12/29/19 12/29/19 00:02 00:02 06:01 WBC 6.69 RBC 4.54 Hgb 13.9 Hct 41.3 MCV 91.0 MCH 30.6 MCHC 33.7 RDW Std Deviation 49.0 H RDW Coeff of Miriam 14.7 H Plt Count 177 MPV 10.5 H Immature Gran % (Auto) 0.1 Neut % (Auto) 47.2 Lymph % (Auto) 38.7 Benzie % (Auto) 10.9 Eos % (Auto) 2.7 Baso % (Auto) 0.4 Neut # (Auto) 3.15 Lymph # (Auto) 2.59 Benzie # (Auto) 0.73 H Eos # (Auto) 0.18 Baso # (Auto) 0.03 Immature Gran # (Auto) 0.01 Sodium 138 Potassium 4.0 Chloride 104 Carbon Dioxide 26 Anion Gap 8.0 BUN 16 Creatinine 0.88 Est Cr Clr Drug Dosing 44.8 Est GFR ( Amer) 68.5 Est GFR (Non-Af Amer) 59.1 BUN/Creatinine Ratio 18.3 Glucose 100 H Calcium 9.3 Total Bilirubin 0.7 AST 23 ALT 26 Alkaline Phosphatase 74 Troponin I < 0.015 < 0.015 Total Protein 6.8 Albumin 3.7 Globulin 3.1 Albumin/Globulin Ratio 1.2 Lipase 192 Specimen Hemolysis Diagnostic Findings chest x-ray obtained at the time of admission revealed a chronic calcified lesion in the subcarinal area otherwise unremarkable echocardiogram obtained 12/2018: Normal LV systolic function without significant valvular heart disease. Borderline aortic root dilation. Cardiac catheterization performed 12/22/2018: Single-vessel coronary disease involving the mid and distal LAD. 90 percent acute apical LAD lesion. ECG Additional Comments: Normal sinus rhythm. Normal EKG. PG Care Time/CCT Total # of Minutes Spent Total Time Spent with Patient: Total time spent is greater than 50% in coordination of care (as documented) at patient's floor/unit and/or counseling patient: Coding Level of Care Code 11778 OBS Care - Level 3 Diagnoses Atypical chest pain R07.89 CAD (coronary artery disease) I25.10 Associated angina: angina presence unspecified Coronary Disease-Associated Artery/Lesion type: unspecified vessel or lesion type [place] vs. transplanted heart: [place] heart Hypertension I10 Hypertension type: unspecified (1) CAD (coronary artery disease) Associated angina: angina presence unspecified Coronary Disease-Associated Artery/Lesion type: unspecified vessel or lesion type [place] vs. transplanted heart: [place] heart Qualified Code(s): I25.10 - Atherosclerotic heart disease of [place] coronary artery without angina pectoris (2) Hypertension Hypertension type: unspecified Qualified Code(s): I10 - Essential (primary) hypertension
--- NOTE | 2019-12-29 10:12 | Discharge Summary ---
Date of Service December 29, 2019 Admission HPI Per Admitting Provider Pt is a 89yo female with a PMHx of CAD with significant stenosis of the LAD, HTN, HLD, Hypothyroidism and GERD who presents with worsening left arm pain associated with numbness and tingling and was admitted for ACS rule-out. Of note, in December 2018, she underwent cardiac cath and was found to have significant stenosis of her LAD. No stent was placed at that time, and she was being medically managed. Pt states that the pain in the left arm started about 7am the day of admission. Rated it as 8/10, dull with no radiation. However it was associated with numbness and tingling down the arm into the fingers. Denies any associated chest pain, SOB. N/V, diaphoresis. States her mother had a Hx of CHF. Pt was a smoker about 60 years ago and smoked 1ppd during that time. She lives at [facility], exercises regularly and is a vegan, stating she switched after her last heart event in 2019 to help cut down on fats. Of note on review of systems she admits to being continually nasally congested. Denies any fevers, chills or night sweats, cough or sore throat during this COVID pandemic. States she continually has to blow her nose. States she has trouble breathing with this whenever she lays down flat. Principal Diagnosis Left arm pain; atypical chest pain Discharge Exam Constitutional WD/WN, vitals as above cooperative and comfortable No current arm pain; laughing, in good spirits Eyes PERRL, conjunctivae normal, anicteric sclerae ENMT external ear and nose normal, oropharynx normal Neck trachea midline, no thyromegaly Respiratory normal respiratory effort, lungs clear to auscultation Cardiovascular Rate/Rhythm: regular rate and regular rhythm Extremities: + edema Gastrointestinal (Abdomen) Percussion/Palpation: abdomen soft; abdomen nontender, no guarding and abdomen not rigid Musculoskeletal Head/Neck/Chest: normocephalic and head atraumatic Spine: Lhermitte's sign negative No palpable tenderness to LUE. No pain with Wrist flexion/extension against resistance with good strength. No sensory deficits. Skin no rashes, warm and dry Neurologic CN's II-XI intact bilaterally, moves all extremities and awake Psychiatric A+Ox3, euthymic affect Discharge Data Allergies Allergy/AdvReac Type Severity Reaction Status Date / Time amoxicillin Allergy Intermediate Hives Verified 07/30/19 11:02 bee pollen Allergy . Verified 07/30/19 11:02 Fish Containing Products Allergy . Verified 07/30/19 11:02 hornet venom Allergy . Verified 07/30/19 11:02 Iodinated Contrast Media Allergy Swelling Verified 07/30/19 11:02 [Iodinated Contrast- Oral of and IV Dye] Lip/Tongue/Throat strawberry Allergy Hives Verified 07/30/19 11:02 Wasp and Yellow Jackets Allergy . Uncoded 07/30/19 11:02 Consultations 12/29/19 01:22 ED Decision to Admit Stat 12/29/19 03:26 Consult Cardiology Routine Hospital Course (1) Atypical chest pain: Pt is a 89yo female with a PMHx of CAD with significant stenosis of the LAD, HTN, HLD, Hypothyroidism and GERD who presents with worsening left arm pain associated with numbness and tingling and was admitted for ACS rule-out. She noted arm pain was same as prior NSTEMI, but less severe and numbness only involed mid to distal forearm into hand; last episode had global arm numbness/pain. ACS rule-out -Left arm dull pain from mid forearm radiating to left arm; numbness from dorsal mid left forearm to fingers tingling that has resolved. -Denied chest pain, SOB, N/V, radiation of the pain elsewhere, diaphoresis with pain; did have some nausea overnight prior to DC. -pain relieved by nitro and nitro paste, currently down to a 0 from 8 when it started -EKG in ED with NSR, no evidence of ischemia -Trops x3 negative -Echo 2019: LVH, EF 65-70%, no wall motion abnormalities -[facility] consulted during stay and saw patient in hospital. - home metoprolol succinate 25mg daily and irbesartan 150mg and baby aspirin were continued throughout stay -only interventions for left arm pain here were nitropaste application q6h scheduled HTN -here had her home irbesartan 150mg daily, continue metoprolol succinate 25mg daily -BPs here were significantly elevated 157-201/83-102 -Discussed with Cardiology who recommended better BP control. -After reassurance was provided, BP was 130/71. -She notes increased anxiety at home over son not having any income with [employer] and didn't hear from him last night, she became worried. She also notes anxious from being in hospital. -Will have her BP followed in the outpatient setting, she will take BP reads at home, considered starting HCTZ 12.5mg but will defer if needed, elevated BPs here most likely from sympathetic response. Hypothyroidism -continue home Synthroid 50mcg daily GERD -continue home protonix 40mg FEN/GI: Vegan diet, HH DVT prophylaxis: Heparin SQ BID CODE STATUS: DNR/DNI Dispo: PCU/tele Total Time Total Time Spent Total Time Spent (In Minutes): <30 Total Time Includes: Examination of the Patient, Discharge Planning, Medication Reconciliation and Communication With Other Providers Discharge Plan Discharge Items Patient Disposition: Home - Self-Care Reason For Visit: RULE OUT ACS Discharge Diagnosis: Left Arm Pain Activity: Resume your previous activity Non-emergency contact: Primary Care Provider Call non-emergency contact if: you have any medication questions, your symptoms worsen, your pain is worsening and your pain is unusual for you Follow-up/Referrals: Judith De Oliveira [Primary Care Provider] - Diet: Heart Healthy Addtl Attending Provider Instructions: You were seen and evaluated to make sure that your left arm pain wasn't caused by another heart attack. Since it was similar do you pain with your heart attack in the past, we needed to do a cardiac workup. You had negative elevations for a laboratory test of your Troponin. This is an enzyme that is only found in your heart and if there is heart damage, it spills into your blood stream, which we can check with lab work. You had 3 negative troponins over the course of 18 hours, which supports that there was no heart damage. Please return to the ED, if you are concerned that you could be having a heart attack, you may have atypical symptoms and not the usual chest pains with a heart attack, as based on your previous heart attack. We are happy to see you. You were also seen by [facility], who agreed that pain didn't appear to be caused by your heart. Your blood pressure has been slightly elevated from our readings in the hospital. Your last BP was normal 130/71. Elevated Blood Pressures most likely from anxiety/being in the hospital. Please take home readings and bring with you to your next visit with your Primary Care Provider. For your arm pain, unsure of exact cause. It could be musculoskeletal pain from working at the computer, or could be a pinched nerve in your arm or coming from your neck. Please discuss this with your Primary Care Provider to try to identify any cause. Perhaps, try taking your blood pressure measurements on your right arm for a change. Pending Studies at Discharge: No Stand-Alone Forms: My [facility], Smoking Cessation Medications and DC Order Prescriptions: Continued metoprolol succinate 25 mg tablet extended release 24 hr 25 mg PO DAILY Qty: 90 RF: 3 flaxseed oil PO DAILY RF: 0 nitroglycerin 0.4 mg tablet, sublingual 0.4 mg SL DIRECTED PRN (Reason: Chest Pain) RF: 0 levothyroxine 50 mcg capsule 50 mcg PO DAILY RF: 0 multivitamin Tablet 1 tab PO DAILY RF: 0 cholecalciferol (vitamin D3) [Vitamin D3] 25 mcg (1,000 unit) Capsule 1,000 unit PO DAILY RF: 0 pantoprazole 40 mg tablet,delayed release (DR/EC) 40 mg PO DAILY RF: 0 irbesartan 150 mg tablet 150 mg PO DAILY RF: 0 aspirin 81 mg Tablet,Delayed Release (Dr/Ec) 81 mg PO DAILY Qty: 0 RF: 0 Discharge Orders: Discharge Order (Routine); Ordered 12/29/19 Ordered By: Walt Lucia Admission Data Admit Date/Time: 12/29/19 02:33 Attending Provider: Roldan Hughes Admit Provider: Timothy Monroy Primary Care Provider: Judith De Oliveira Other Providers: Timothy Monroy ; Willie Croft. Other Interventions: Discharge Summary Assessment (RN) Last Done: 12/29/19 12:14 DC Date/Time DO NOT enter until pt leaves facility: 12/29/19 13:28 Supervising Physician Co-Signing Physician Notes I personally examined the patient and verified all youssef points of history and exam, discussed case, and agree with decision making with Dr Lucia. feeling better. feeling up to going home. happy w negative w/u but feels " foolish" for coming - reassured that we would rather evaluate her concerns and have them turntable man to be unfounded than have her stay at home w DC vitals noted nad heent nc at mmm breathing unlabored L arm paresthesia - most likely peripheral vs cervical nerve compression - but improved. safe for outpt eval if recurs. noncardiac. stable for home otherwise as above, appreciate cardiology input Resident Activity Tracking Resident Involvement: Resident Care Provided Care Provided: Adult Hospital Medicine
--- NOTE | 2019-12-29 10:18 | Electrocardiogram Report ---
Test Reason : Blood Pressure : / mmHG Vent. Rate : 071 BPM Atrial Rate : 071 BPM P-R Int : 156 ms QRS Dur : 082 ms QT Int : 394 ms P-R-T Axes : 033 021 039 degrees QTc Int : 428 ms Normal sinus rhythm Normal ECG When compared with ECG of 24-JUL-2019 16:49, No significant change was found Confirmed by Bill Croft ([id number]) on 12/29/2019 10:17:33 AM Referred By: [facility] Confirmed By:Casa Croft
--- NOTE | 2019-12-29 15:28 | Billing Data ---
Date of Service December 29, 2019 Coding Level of Care Code 90393 OBS Care - Discharge
--- NOTE | 2019-12-29 22:12 | Billing Data ---
Date of Service December 29, 2019 Coding Level of Care Code 64910 OBS Care - Level 3
== END 2019-12-29 13:28 | disposition home or self-care (01) ==
LOC: ED 23:54 → 2E 23:54 → SUATTDRO 12-29 02:33 → 2E 12-29 03:02